=== PATIENT | male | born 1965 | race Caucasian/White ===

== ENCOUNTER 2017-07-30 09:45 | Inpatient (IN) | payer OTHER ==
[2017-07-30 10:38] VITALS: BMI 33.6
--- NOTE | 2017-07-30 14:17 | HP ---
COWS - Scale Resting Pulse: 1= [place] 81-100 Sweatin=Flushed/Facial Moisture Restless Observation: 1= Difficult to Sit Still Pupil Size: 1= Pupils >than Normal Bone or Joint Aches: 2= Severe Diffuse Aches Runny Nose/ Eye Tearin= Runny Nose/Eyes GI Upset > 30mins: 0= None Tremor Observation: 2= Slight Tremor Visible Yawning Observation: 1= 1-2x During Session Anxiety or Irritability: 2=Irritable/Anxious Goose Flesh Skin: 0=Smooth Skin COWS Score: 14 Admission ROS S - HPI Chief Complaint: "I want to stop the progression of using heroin, I just started again 2 months ago" Allergies/Adverse Reactions: Allergies Allergy/AdvReac Type Severity Reaction Status Date / Time penicillin G Allergy Severe Hives Verified 07/30/17 12:09 History of Present Illness: 52 year old male with an on and off heroin use for 6 years presents here for detox from heroin. Pt with about 6-7 of being clean, but started to use 2 months ago due to pain from R knee surgery. States he smokes about 1/2 pack (ten cigarets) a day but does not drink alcohol Exam Limitations: No Limitations - Ebola screening Have you traveled outside of the country in the last 21 days: No Have you had contact with anyone from an Ebola affected area: No Have you been sick,other than usual withdrawal symptoms: No Do you have a fever: No - Review of Systems Constitutional: Chills, Unintentional Wgt. Loss EENT: reports: Nose Congestion Respiratory: reports: No Symptoms reported Cardiac: reports: No Symptoms Reported GI: reports: No Symptoms Reported : reports: No Symptoms Reported Musculoskeletal: reports: Back Pain, Joint Pain, Muscle Pain Integumentary: reports: Flushing Neuro: reports: No Symptoms reported Endocrine: reports: No Symptoms Reported Hematology: reports: No Symptoms Reported Psychiatric: reports: Orientated x3, Agitated, Anxious Patient History - Patient Medical History Hx Anemia: No Hx Asthma: No Hx Chronic Obstructive Pulmonary Disease (COPD): No Hx Cancer: No Hx Cardiac Disorders: No Hx Congestive Heart Failure: No Hx Hypertension: No Hx Hypercholesterolemia: No Hx Pacemaker: No HX Cerebrovascular Accident: No Hx Seizures: No Hx Dementia: No Hx Diabetes: No Hx Gastrointestinal Disorders: Yes Hx Liver Disease: No Hx Genitourinary Disorders: No Hx Sexually Transmitted Disorders: No Hx Renal Disease (ESRD): No Hx Thyroid Disease: No Hx Human Immunodeficiency Virus (HIV): No (LASR 08/31) Hx Hepatitis C: Yes ( 10 years ago - treated) Hx Depression: Yes Hx Suicide Attempt: No Hx Bipolar Disorder: Yes (seroquel) Hx Schizophrenia: No - Patient Surgical History Past Surgical History: Yes Hx Neurologic Surgery: No Hx Cataract Extraction: No Hx Cardiac Surgery: No Hx Lung Surgery: No Hx Breast Surgery: No Hx Breast Biopsy: No Hx Abdominal Surgery: Yes (LT. INGUINAL HERNIA REPAIR) Hx Appendectomy: No Hx Cholecystectomy: No Hx Genitourinary Surgery: Yes (TORSION OF TESTICLES) Hx Section: No Hx Orthopedic Surgery: No Other Surgical History: tonsillectomy at 12 years old.OSTEOMYELITIS RT. CLAVICLE BONE SHAVING Anesthesia Reaction: No - PPD History Previous Implant?: Yes Date: 10/21/15 Results: 0 mm PPD to be Administered?: Yes - Smoking Cessation Smoking history: Current every day smoker Have you smoked in the past 12 months: Yes Aproximately how many cigarettes per day: 10 Hx Chewing Tobacco Use: No Initiated information on smoking cessation: Yes - Substances Abused Heroin Route: Injection Frequency: Daily Amount used: 5-8 bags Age of first use: 40 Date of Last Use: 07/29/17 Family Disease History - Family Disease History Family Disease History: CA: Mother (UTERUS), Other: Brother (DRUG) Admission Physical Exam BHS - Vital Signs Vital Signs: Vital Signs - 24 hr 07/30/17 10:36 Temperature 97.7 F Pulse Rate 97 H Respiratory 18 Rate Blood Pressure 136/93 - Physical General Appearance: Yes: Appropriately Dressed, Mild Distress HEENTM: Yes: Within Normal Limits Respiratory: Yes: Chest Non-Tender, Lungs Clear, Normal Breath Sounds, No Respiratory Distress, No Accessory Muscle Use Neck: Yes: No masses,lesions,Nodules Breast: Yes: Breast Exam Deferred Cardiology: Yes: Regular Rhythm, Regular Rate, S1, S2 Abdominal: Yes: Normal Bowel Sounds, Non Tender, Soft Genitourinary: Yes: Within Normal Limits Back: Yes: Within Normal Limits Musculoskeletal: Yes: full range of Motion, Gait Steady Neurological: Yes: Alert Integumentary: Yes: Dry, Warm, Track Mitchell Lymphatic: Yes: Within Normal Limits - Diagnostic (1) Opioid dependence with withdrawal Current Visit: No Status: Acute (2) Nicotine dependence Current Visit: No Status: Acute Qualifiers: Nicotine product type: cigarettes Substance use status: uncomplicated Qualified Code(s): F17.210 - Nicotine dependence, cigarettes, uncomplicated (3) Cocaine dependence Current Visit: No Status: Acute Qualifiers: Substance use status: with cocaine-induced anxiety disorder Qualified Code( s): 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 (4) GERD (gastroesophageal reflux disease) Current Visit: No Status: Chronic Qualifiers: Esophagitis presence: without esophagitis Qualified Code(s): K21.9 - Gastro -esophageal reflux disease without esophagitis Cleared for Admission S - Detox or Rehab S Level of Care: Medically Managed Detox Regimen/Protocol: Methadone [facility] Breath Alcohol Content Breath Alcohol Content: 0 Urine Drug Screen - Results Drug Screen Negative: No Urine Drug Screen Results: CORINE-Cocaine, OPI-Opiates, OXY-Oxycodone
[2017-07-30] MEDS ORDERED: IBUPROFEN 400 MG TABLET (FP) PO PRN (14:45)
[2017-07-30] MEDS ORDERED: guaiFENesin/D-METHORPHAN HB 10 ML UNIT-DOSE CUPS PO PRN (14:45)
[2017-07-30] MEDS ORDERED: LOPERAMIDE HCL 2 MG CAPSULE PO PRN (14:45)
[2017-07-30] MEDS ORDERED: MAGNESIUM CITRATE 300 ML BOTTLE PO PRN (14:45)
[2017-07-30] MEDS ORDERED: MAGNESIUM HYDROX 2400MG/30ML ORAL SUSPENSION 30 ML CUP PO PRN (14:45)
[2017-07-30] MEDS ORDERED: ACETAMINOPHEN 325 MG TABLET (FP) PO PRN (14:45)
[2017-07-30] MEDS ORDERED: P-EPHED 60MG/TRIPROLIDI 2.5MG TABLET PO PRN (14:45)
[2017-07-30] MEDS ORDERED: MENTHOL/PHENOL 1 EACH UD MM PRN (14:45)
[2017-07-30] MEDS ORDERED: MAG HYDROX/AL HYDROX/SIMETH 30 ML UNIT-DOSE CUP PO PRN (14:45)
[2017-07-30] MEDS ORDERED: METHADONE HCL 10 MG TABLET (FOR DETOX USE ONLY) PO ONE ×2 (15:05→23:00)
[2017-07-30] MEDS: diazePAM 5 MG TABLET PO PRN ×2 (17:05→22:06)
--- NOTE | 2017-07-30 17:24 | PN ---
BHS Progress Note Note: RECEIVED NURSE CALLED THAT THE PATIENT NEEDS PPD
[2017-07-30] MEDS: THIAMINE HCL 100 MG TABLET (FP) PO SCH (22:05)
[2017-07-31] MEDS: diazePAM 5 MG TABLET PO PRN ×4 (07:40→21:14)
[2017-07-31] MEDS ORDERED: METHADONE HCL 10 MG TABLET (FOR DETOX USE ONLY) PO ONE (10:00)
--- NOTE | 2017-07-31 10:03 | CONSULT ---
[facility] Psychiatric Consult - Data Date of interview: 07/31/17 Admission source: [facility] Substance Abuse History: Following information confirmed with Mr. Osei: - Smoking Cessation. Smoking history: Current every day smoker. Have you smoked in the past 12 months: Yes. Aproximately how many cigarettes per day: 10. Hx Chewing Tobacco Use: No. Initiated information on smoking cessation: Yes. - Substances Abused. Heroin. Route: Injection. Frequency: Daily. Amount used: 5-8 bags. Age of first use: 40. Date of Last Use: 07/29/17 Medical History: Hep C Psychiatric History: Pt irritable and withdrawn this morning. Pt. denies h/o psychiatric hospitalizations, suicide attempts, and OPC. States he is prescribed seroquel 200mg daily but not sure if it's a psychiatrist or medical doctor who prescribes it to him. Reports a diagnosis of bipolar disorder and MDD. As per pharmacy claims patient received a prescription of seroquel 200mg qhs on 11/23/16 and another prescription of seroquel of 150mg qhs on 11/24/16. Physical/Sexual Abuse/Trauma History: Denies. Additional Comment: Urine Drug Screen Results: CORINE-Cocaine, OPI-Opiates, OXY- Oxycodone Mental Status Exam - Mental Status Exam Alert and Oriented to: Time, Place, Person Cognitive Function: Fair, Good Patient Appearance: Unkempt Mood: Withdrawn, Irritable Affect: Mood Congruent Patient Behavior: Agitated Speech Pattern: Delayed Voice Loudness: Normal Thought Process: Goal Oriented Thought Disorder: Not Present Hallucinations: Denies Insight/Judgement: Poor Sleep: Poorly Appetite: Fair Muscle strength/Tone: Normal Gait/Station: Normal Psychiatric Findings - Problem List ([place] 1, 2,3) (1) Heroin dependence Current Visit: Yes Status: Acute (2) MDD (major depressive disorder) Current Visit: Yes Status: Chronic Comment: Self reports. (3) Bipolar disorder Current Visit: Yes Status: Chronic Comment: Self reports. (4) Nicotine dependence Current Visit: Yes Status: Chronic Qualifiers: Nicotine product type: cigarettes Substance use status: uncomplicated Qualified Code(s): F17.210 - Nicotine dependence, cigarettes, uncomplicated - Initial Treatment Plan Initial Treatment Plan: Psychoeducation provided. Detoxification in progress. Celexa 10mg po daily + Seroquel 100mg qhs ordered. Benefits and side effects discussed. Verbal consent given. Will continue to monitor.
[2017-07-31 10:06] LABS: ALBUMIN 3.5 g/dl (3.4-5.0); ALK PHOS 77 U/L (45-117); ANION GAP 6 (8-16); BILIRUBIN,TOTAL 0.6 mg/dL (0.2-1.0); BLOOD UREA NITROGEN 17 mg/dL (7-18); CALCIUM 8.4 mg/dL (8.5-10.1); CHLORIDE 107 mmol/L (98-107); CO2 29 mmol/L (21-32); CREATININE 1.4 mg/dL (0.7-1.3); GLUCOSE,RANDOM 94 mg/dL (74-106); POTASSIUM 4.2 mmol/L (3.5-5.1); SGOT/AST 9 U/L (15-37); SGPT/ALT 21 U/L (12-78); SODIUM 142 mmol/L (136-145); TOT PROT 6.8 g/dl (6.4-8.2)
[2017-07-31] MEDS: PRENATAL VITAMINS W/ FOLIC ACID TABLET (FP) PO SCH (10:07)
[2017-07-31 10:09] LABS: HEMATOCRIT 49.2 % (35.4-49); HEMOGLOBIN 16.2 GM/dL (11.7-16.9); MEAN CELL VOLUME 87.8 fl (80-96); MEAN PLT VOLUME 8.4 fl (7.5-11.1); PLATELET COUNT 229 K/MM3 (134-434); RBC 5.61 M/mm3 (4.00-5.60); RDW 13.8 % (11.9-15.9); WHITE BLOOD COUNT 8.1 K/mm3 (4.0-10.0)
--- NOTE | 2017-07-31 10:16 | PN ---
BHS COWS - Scale Resting Pulse: 1= [place] 81-100 Sweatin=Flushed/Facial Moisture Restless Observation: 1= Difficult to Sit Still Pupil Size: 0= Normal to Room Light Bone or Joint Aches: 2= Severe Diffuse Aches Runny Nose/ Eye Tearin= Nasal Congestion GI Upset > 30mins: 2= Nausea/Diarrhea Tremor Observation of Outstretched Hands: 2= Slight Tremor Visible Yawning Observation: 2= >3x During Session Anxiety or Irritability: 2=Irritable/Anxious Goose Flesh Skin: 0=Smooth Skin COWS Score: 15 BHS Progress Note (SOAP) Subjective: nausea sweats shakes interrupted sleep body aches irritable Objective: 07/31/17 10:14 Vital Signs Temperature 97.9 F 07/31/17 06:38 Pulse Rate 58 L 07/31/17 06:38 Respiratory Rate 20 07/31/17 06:38 Blood Pressure 122/69 07/31/17 06:38 O2 Sat by Pulse Oximetry (%) Laboratory Tests 07/31/17 07:00 Sodium 142 Potassium 4.2 Chloride 107 Carbon Dioxide 29 Anion Gap 6 L BUN 17 Creatinine 1.4 H Creat Clearance w eGFR 53.64 Random Glucose 94 D Calcium 8.4 L Total Bilirubin 0.6 D AST 9 L D ALT 21 D Alkaline Phosphatase 77 Total Protein 6.8 Albumin 3.5 rest of labs pending aaox3 ambulating no acute distress Assessment: 07/31/17 10:15 withdrawal sx Plan: continue detox increase fluids pending labs
--- NOTE | 2017-07-31 10:56 | EKG ---
Test Reason : Blood Pressure : / mmHG Vent. Rate : 060 BPM Atrial Rate : 060 BPM P-R Int : 168 ms QRS Dur : 094 ms QT Int : 398 ms P-R-T Axes : 060 070 038 degrees QTc Int : 398 ms NORMAL SINUS RHYTHM NORMAL ECG NO PREVIOUS ECGS AVAILABLE Confirmed by MD David, Riccardo ([id number]) on 07/31/2017 10:55:59 AM Referred By: Jayesh Conner Confirmed By:Riccardo Hernandez MD
[2017-07-31 13:50] LABS: URINE APPEARANCE CLEAR; URINE BILIRUBIN NEGATIVE (NEGATIVE); URINE BLOOD NEGATIVE (NEGATIVE); URINE COLOR YELLOW; URINE GLUCOSE (UA) NEGATIVE (NEGATIVE); URINE KETONE NEGATIVE (NEGATIVE); URINE LEUK ESTERASE NEGATIVE (NEGATIVE); URINE NITRITE NEGATIVE (NEGATIVE); URINE PROTEIN NEGATIVE (NEGATIVE); URINE UROBILINOGEN 4.0 E.U/dl mg/dL (0.2-1.0)
[2017-07-31] MEDS: THIAMINE HCL 100 MG TABLET (FP) PO SCH (22:30)
[2017-07-31] MEDS: QUEtiapine FUMARATE 100 MG TABLET (FP) PO SCH (22:30)
[2017-08-01] MEDS: diazePAM 5 MG TABLET PO PRN ×3 (08:23→22:23)
[2017-08-01] MEDS ORDERED: METHADONE HCL 5 MG TABLET (FOR DETOX USE ONLY) PO ONE (10:00)
[2017-08-01] MEDS: PRENATAL VITAMINS W/ FOLIC ACID TABLET (FP) PO SCH (10:19)
[2017-08-01] MEDS: CITALOPRAM HYDROBROMIDE 10 MG TABLET (FP) PO SCH (10:19)
[2017-08-01] MEDS: RANITIDINE HCL 150 MG TABLET (FP) PO SCH ×2 (11:25→22:23)
[2017-08-01] MEDS: NICOTINE 21 MG/24 HOURS TOPICAL PATCH TD SCH (13:26)
--- NOTE | 2017-08-01 14:10 | PN ---
BHS COWS - Scale Resting Pulse: 0= [place] 80 or Below Sweatin=Flushed/Facial Moisture Restless Observation: 1= Difficult to Sit Still Pupil Size: 0= Normal to Room Light Bone or Joint Aches: 2= Severe Diffuse Aches Runny Nose/ Eye Tearin= None GI Upset > 30mins: 2= Nausea/Diarrhea Tremor Observation of Outstretched Hands: 1= Tremor [place], Not Seen Yawning Observation: 1= 1-2x During Session Anxiety or Irritability: 1=Feels Anxious/Irritable Goose Flesh Skin: 3=Piloerection COWS Score: 13 BHS Progress Note (SOAP) Subjective: body aches, interrupted sleep, chills, sweats, nausea, tremor, interrupted sleep Objective: 08/01/17 14:08 Last Vital Signs Temp Pulse Resp BP Pulse Ox 96.4 F L 67 18 133/85 08/01/17 10:00 08/01/17 10:00 08/01/17 10:00 08/01/17 10:00 Laboratory Last Values WBC 8.1 K/mm3 (4.0-10.0) 07/31/17 07:00 RBC 5.61 M/mm3 (4.00-5.60) H 07/31/17 07:00 Hgb 16.2 GM/dL (11.7-16.9) 07/31/17 07:00 Hct 49.2 % (35.4-49) H 07/31/17 07:00 MCV 87.8 fl (80-96) 07/31/17 07:00 MCH 29.0 pg (25.7-33.7) 07/31/17 07:00 MCHC 33.0 g/dl (32.0-35.9) 07/31/17 07:00 RDW 13.8 % (11.9-15.9) 07/31/17 07:00 Plt Count 229 K/MM3 (134-434) D 07/31/17 07:00 MPV 8.4 fl (7.5-11.1) 07/31/17 07:00 Sodium 142 mmol/L (136-145) 07/31/17 07:00 Potassium 4.2 mmol/L (3.5-5.1) 07/31/17 07:00 Chloride 107 mmol/L (98-107) 07/31/17 07:00 Carbon Dioxide 29 mmol/L (21-32) 07/31/17 07:00 Anion Gap 6 (8-16) L 07/31/17 07:00 BUN 17 mg/dL (7-18) 07/31/17 07:00 Creatinine 1.4 mg/dL (0.7-1.3) H 07/31/17 07:00 Creat Clearance w eGFR 53.64 (>60) 07/31/17 07:00 Random Glucose 94 mg/dL (74-106) D 07/31/17 07:00 Calcium 8.4 mg/dL (8.5-10.1) L 07/31/17 07:00 Total Bilirubin 0.6 mg/dL (0.2-1.0) D 07/31/17 07:00 AST 9 U/L (15-37) L D 07/31/17 07:00 ALT 21 U/L (12-78) D 07/31/17 07:00 Alkaline Phosphatase 77 U/L (45-117) 07/31/17 07:00 Total Protein 6.8 g/dl (6.4-8.2) 07/31/17 07:00 Albumin 3.5 g/dl (3.4-5.0) 07/31/17 07:00 Urine Color Yellow 07/31/17 12:10 Urine Appearance Clear 07/31/17 12:10 Urine pH 7.0 (5.0-8.0) D 07/31/17 12:10 Ur Specific [place] 1.023 (1.001-1.035) 07/31/17 12:10 Urine Protein Negative (NEGATIVE) 07/31/17 12:10 Urine Glucose (UA) Negative (NEGATIVE) 07/31/17 12:10 Urine Ketones Negative (NEGATIVE) 07/31/17 12:10 Urine Blood Negative (NEGATIVE) 07/31/17 12:10 Urine Nitrite Negative (NEGATIVE) 07/31/17 12:10 Urine Bilirubin Negative (NEGATIVE) 07/31/17 12:10 Urine Urobilinogen 4.0 e.u/dl mg/dL (0.2-1.0) 07/31/17 12:10 Ur Leukocyte Esterase Negative (NEGATIVE) 07/31/17 12:10 RPR Titer Nonreactive (NONREACTIVE) 07/31/17 07:00 Labs noted Assessment: 08/01/17 14:08 AOx3 Ambulating No s/s of distress withdrawal symptoms Plan: Continue detox increase fluids
[2017-08-01] MEDS: QUEtiapine FUMARATE 100 MG TABLET (FP) PO SCH (22:23)
[2017-08-01] MEDS: THIAMINE HCL 100 MG TABLET (FP) PO SCH (22:23)
[2017-08-02] MEDS: diazePAM 5 MG TABLET PO PRN ×2 (08:47→13:17)
[2017-08-02] MEDS ORDERED: METHADONE HCL 5 MG TABLET (FOR DETOX USE ONLY) PO ONE (10:00)
[2017-08-02] MEDS: PRENATAL VITAMINS W/ FOLIC ACID TABLET (FP) PO SCH (10:10)
[2017-08-02] MEDS: CITALOPRAM HYDROBROMIDE 10 MG TABLET (FP) PO SCH (10:10)
[2017-08-02] MEDS: RANITIDINE HCL 150 MG TABLET (FP) PO SCH (10:10)
[2017-08-02] MEDS: NICOTINE 21 MG/24 HOURS TOPICAL PATCH TD SCH (10:11)
[2017-08-02] MEDS ORDERED: NICOTINE 21 MG/24 HOURS TOPICAL PATCH TD SCH (11:15)
--- NOTE | 2017-08-02 15:02 | PN ---
S Progress Note (SOAP) Subjective: Interrupted sleep, anxious, chills, body ache Objective: 08/02/17 14:59 Last Vital Signs Temp Pulse Resp BP Pulse Ox 96.8 F L 75 18 121/74 08/02/17 14:27 08/02/17 14:27 08/02/17 14:27 08/02/17 14:27 Laboratory Last Values WBC 8.1 K/mm3 (4.0-10.0) 07/31/17 07:00 RBC 5.61 M/mm3 (4.00-5.60) H 07/31/17 07:00 Hgb 16.2 GM/dL (11.7-16.9) 07/31/17 07:00 Hct 49.2 % (35.4-49) H 07/31/17 07:00 MCV 87.8 fl (80-96) 07/31/17 07:00 MCH 29.0 pg (25.7-33.7) 07/31/17 07:00 MCHC 33.0 g/dl (32.0-35.9) 07/31/17 07:00 RDW 13.8 % (11.9-15.9) 07/31/17 07:00 Plt Count 229 K/MM3 (134-434) D 07/31/17 07:00 MPV 8.4 fl (7.5-11.1) 07/31/17 07:00 Sodium 142 mmol/L (136-145) 07/31/17 07:00 Potassium 4.2 mmol/L (3.5-5.1) 07/31/17 07:00 Chloride 107 mmol/L (98-107) 07/31/17 07:00 Carbon Dioxide 29 mmol/L (21-32) 07/31/17 07:00 Anion Gap 6 (8-16) L 07/31/17 07:00 BUN 17 mg/dL (7-18) 07/31/17 07:00 Creatinine 1.4 mg/dL (0.7-1.3) H 07/31/17 07:00 Creat Clearance w eGFR 53.64 (>60) 07/31/17 07:00 Random Glucose 94 mg/dL (74-106) D 07/31/17 07:00 Calcium 8.4 mg/dL (8.5-10.1) L 07/31/17 07:00 Total Bilirubin 0.6 mg/dL (0.2-1.0) D 07/31/17 07:00 AST 9 U/L (15-37) L D 07/31/17 07:00 ALT 21 U/L (12-78) D 07/31/17 07:00 Alkaline Phosphatase 77 U/L (45-117) 07/31/17 07:00 Total Protein 6.8 g/dl (6.4-8.2) 07/31/17 07:00 Albumin 3.5 g/dl (3.4-5.0) 07/31/17 07:00 Urine Color Yellow 07/31/17 12:10 Urine Appearance Clear 07/31/17 12:10 Urine pH 7.0 (5.0-8.0) D 07/31/17 12:10 Ur Specific [place] 1.023 (1.001-1.035) 07/31/17 12:10 Urine Protein Negative (NEGATIVE) 07/31/17 12:10 Urine Glucose (UA) Negative (NEGATIVE) 07/31/17 12:10 Urine Ketones Negative (NEGATIVE) 07/31/17 12:10 Urine Blood Negative (NEGATIVE) 07/31/17 12:10 Urine Nitrite Negative (NEGATIVE) 07/31/17 12:10 Urine Bilirubin Negative (NEGATIVE) 07/31/17 12:10 Urine Urobilinogen 4.0 e.u/dl mg/dL (0.2-1.0) 07/31/17 12:10 Ur Leukocyte Esterase Negative (NEGATIVE) 07/31/17 12:10 RPR Titer Nonreactive (NONREACTIVE) 07/31/17 07:00 labs noted Assessment: 08/02/17 15:00 AO x 3 ambulating no distress withdrawal symptoms Plan: Continue detox
[2017-08-02 23:38] VITALS: BP 147/70; PULSE 69; TEMP 97.5
[2017-08-03] MEDS ORDERED: METHADONE HCL 10 MG TABLET (FOR DETOX USE ONLY) PO ONE (10:00)
[2017-08-04] MEDS ORDERED: METHADONE HCL 5 MG TABLET (FOR DETOX USE ONLY) PO ONE (06:00)
== END 2017-08-02 22:00 | disposition left against medical advice (07) | DRG 770 ==
LOC: YASAS 09:45 → Y6N 14:50
PROVIDERS: ADMIT Internal Medicine; ATTEND Internal Medicine
PROC: HZ2ZZZZ Detoxification Services for Substance Abuse Treatment (ICD-10-PCS; principal; 2017-07-30)
DX: F11.23 Opioid dependence with withdrawal (principal); F10.230 Alcohol dependence with withdrawal, uncomplicated; F14.20 Cocaine dependence, uncomplicated; F17.210 Nicotine dependence, cigarettes, uncomplicated; F33.9 Major depressive disorder, recurrent, unspecified; F31.9 Bipolar disorder, unspecified; K21.9 Gastro-esophageal reflux disease without esophagitis; B18.2 Chronic viral hepatitis C; E66.09 Other obesity due to excess calories; Z68.33 Body mass index [BMI] 33.0-33.9, adult
CPT/HCPCS: 36415; 80053; 81003; 85027; 86593; 93005; 93010

== ENCOUNTER 2017-10-08 10:04 | Inpatient (IN) | payer OTHER ==
[2017-10-08 11:48] VITALS: BMI 32.8
--- NOTE | 2017-10-08 13:46 | HP ---
COWS - Scale Resting Pulse: 0= [place] 80 or Below Sweatin=Flushed/Facial Moisture Restless Observation: 3= Extraneous Movement Pupil Size: 2= Moderately Dilated Bone or Joint Aches: 2= Severe Diffuse Aches Runny Nose/ Eye Tearin= Runny Nose/Eyes GI Upset > 30mins: 3= Vomiting/Diarrhea Tremor Observation: 2= Slight Tremor Visible Yawning Observation: 2= >3x During Session Anxiety or Irritability: 2=Irritable/Anxious Goose Flesh Skin: 0=Smooth Skin COWS Score: 20 Admission ROS S - HPI Chief Complaint: I NEED HELP TO STOP USING HEROIN AND COCAINE Allergies/Adverse Reactions: Allergies Allergy/AdvReac Type Severity Reaction Status Date / Time penicillin G Allergy Severe Hives Verified 10/08/17 12:16 History of Present Illness: THIS 52YEARS OLD MALE WITH HEROIN AND COCAINE DEPENDENCE,SEEKING DETOCX WITHDRAWAL SYMPTOM,LAST DETOX 08/04/17 TO 09/09/17 HEPATITIS C TREATMENT 2017 NICOTINE DEPENDENCE ANXIETY,DEPRESSION,INSOMNIA WEIGHT LOSS LONGEST PERIOD OF SOBRIETY 7 YEARS Exam Limitations: No Limitations - Ebola screening Have you traveled outside of the country in the last 21 days: No Have you had contact with anyone from an Ebola affected area: No Have you been sick,other than usual withdrawal symptoms: No Do you have a fever: No - Review of Systems Constitutional: Chills, Diaphoresis, Loss of Appetite, Malaise, Night Sweats, Changes in sleep, Weakness, Unintentional Wgt. Loss EENT: reports: Tearing, Nose Congestion Respiratory: reports: No Symptoms reported Cardiac: reports: No Symptoms Reported GI: reports: Diarrhea, Nausea, Vomiting, Abdominal cramping : reports: No Symptoms Reported Musculoskeletal: reports: Back Pain, Joint Pain, Muscle Pain, Joint Stiffness Integumentary: reports: Dryness (DEHYDRATION) Neuro: reports: Headache Endocrine: reports: No Symptoms Reported Hematology: reports: No Symptoms Reported Psychiatric: reports: No Sypmtoms Reported, Judgement Intact, Mood/Affect Appropiate, Orientated x3 (INSOMNIA), Anxious, Depressed Patient History - Patient Medical History Hx Anemia: No Hx Asthma: No Hx Chronic Obstructive Pulmonary Disease (COPD): No Hx Cancer: No Hx Cardiac Disorders: No Hx Congestive Heart Failure: No Hx Hypertension: No Hx Hypercholesterolemia: No Hx Pacemaker: No HX Cerebrovascular Accident: No Hx Seizures: No Hx Dementia: No Hx Diabetes: No Hx Gastrointestinal Disorders: Yes (acid reflux) Hx Liver Disease: No Hx Genitourinary Disorders: No Hx Sexually Transmitted Disorders: No Hx Renal Disease (ESRD): No Hx Thyroid Disease: No Hx Human Immunodeficiency Virus (HIV): No (LAST 09/02 NEGATIVE) Hx Hepatitis C: Yes (Completed Treatment: 03/2017.) Hx Depression: Yes (ANXIETY) Hx Suicide Attempt: No Hx Bipolar Disorder: No Hx Schizophrenia: No Other Medical History: NO SUICIDAL,NO HOMICIDAL,INSOMNIA - Patient Surgical History Past Surgical History: Yes Hx Neurologic Surgery: No Hx Cataract Extraction: No Hx Cardiac Surgery: No Hx Lung Surgery: No Hx Breast Surgery: No Hx Breast Biopsy: No Hx Abdominal Surgery: Yes (LT. INGUINAL HERNIA REPAIR (DURING CHILDHOOD).) Hx Appendectomy: No Hx Cholecystectomy: No Hx Genitourinary Surgery: Yes (TORSION OF TESTICLES (DURING 20'S).) Hx Section: No Hx Orthopedic Surgery: No Other Surgical History: tonsillectomy at 12 years old.OSTEOMYELITIS RT. CLAVICLE BONE SHAVING Anesthesia Reaction: No - PPD History Previous Implant?: Yes Documented Results: Negative w/proof Implanted On Prior [facility] Admission?: Yes Date: 09/06/17 Results: 0 mm PPD to be Administered?: No - Smoking Cessation Smoking history: Current every day smoker Have you smoked in the past 12 months: Yes Aproximately how many cigarettes per day: 10 Cigars Per Day: 0 Hx Chewing Tobacco Use: No Initiated information on smoking cessation: Yes 'Breaking Loose' booklet given: 10/08/17 - Substance & Tx. History Hx Alcohol Use: No Hx Substance Use: Yes Substance Use Type: Cocaine, Heroin Hx Substance Use Treatment: Yes ([facility] 09/04/17 TO 09/09/17) - Substances Abused Heroin Route: Injection Frequency: Daily Amount used: 5 bags Age of first use: 40 Date of Last Use: 10/07/17 Cocaine Route: Injection Frequency: 1-3 times last 30 days Amount used: $20 Age of first use: 20 Date of Last Use: 10/06/17 Family Disease History - Family Disease History Family Disease History: Heart Disease: Mother (UTERUS; HTN), CA: Mother, Other: Brother (DRUG USE.) Admission Physical Exam BHS - Vital Signs Vital Signs: Vital Signs - 24 hr 10/08/17 11:44 Temperature 97.5 F L Pulse Rate 61 Respiratory 20 Rate Blood Pressure 126/70 - Physical General Appearance: Yes: Moderate Distress, Tremorous, Irritable, Sweating, Anxious HEENTM: Yes: Normal ENT Inspection, RENEA, Pharynx Normal Respiratory: Yes: Within Normal Limits, Lungs Clear, Normal Breath Sounds Neck: Yes: Within Normal Limits, Supple, Trachea in good position Breast: Yes: Within Normal Limits Cardiology: Yes: Within Normal Limits, Regular Rhythm, Regular Rate, S1, S2 Abdominal: Yes: Within Normal Limits, Normal Bowel Sounds, Non Tender, Flat, Soft Genitourinary: Yes: Within Normal Limits Back: Yes: Normal Inspection, Muscle Spasm Musculoskeletal: Yes: Within Normal Limits, full range of Motion, Back pain, Muscle Pain Extremities: Yes: Tremors Neurological: Yes: copywriter II-XII NML intact, Fully Oriented, Alert, Motor Strength 5/5 Integumentary: Yes: Dry, Track Mitchell Lymphatic: Yes: Within Normal Limits - Diagnostic (1) Opioid dependence with withdrawal Current Visit: No Status: Acute (2) Cocaine dependence, uncomplicated Current Visit: No Status: Deleted (3) Bipolar disorder Current Visit: No Status: Deleted Comment: Self reports. (4) GERD (gastroesophageal reflux disease) Current Visit: No Status: Chronic Qualifiers: Esophagitis presence: without esophagitis Qualified Code(s): K21.9 - Gastro -esophageal reflux disease without esophagitis (5) Nicotine dependence Current Visit: No Status: Chronic Qualifiers: Nicotine product type: cigarettes Substance use status: uncomplicated Qualified Code(s): F17.210 - Nicotine dependence, cigarettes, uncomplicated (6) Hepatitis C Current Visit: No Status: Resolved Qualifiers: Viral hepatitis chronicity: chronic Hepatic coma status: without hepatic coma Qualified Code(s): B18.2 - Chronic viral hepatitis C Comment: Completed Treatment (2016). [facility] - [facility] Level of Care: Medically Managed Detox Regimen/Protocol: [facility]one [facility] Breath Alcohol Content Breath Alcohol Content: 0 Urine Drug Screen - Results Drug Screen Negative: No Urine Drug Screen Results: CORINE-Cocaine, OPI-Opiates, MET-Methamphetamine, BZO- Benzodiazepines
[2017-10-08] MEDS ORDERED: MAGNESIUM CITRATE 300 ML BOTTLE PO PRN (13:53)
[2017-10-08] MEDS ORDERED: IBUPROFEN 400 MG TABLET (FP) PO PRN (13:53)
[2017-10-08] MEDS ORDERED: guaiFENesin/D-METHORPHAN HB 10 ML UNIT-DOSE CUPS PO PRN (13:53)
[2017-10-08] MEDS ORDERED: LOPERAMIDE HCL 2 MG CAPSULE PO PRN (13:53)
[2017-10-08] MEDS ORDERED: ACETAMINOPHEN 325 MG TABLET (FP) PO PRN (13:53)
[2017-10-08] MEDS ORDERED: MENTHOL/PHENOL 1 EACH UD MM PRN (13:53)
[2017-10-08] MEDS ORDERED: MAGNESIUM HYDROX 2400MG/30ML ORAL SUSPENSION 30 ML CUP PO PRN (13:53)
[2017-10-08] MEDS ORDERED: P-EPHED 60MG/TRIPROLIDI 2.5MG TABLET PO PRN (13:53)
[2017-10-08] MEDS ORDERED: hydrOXYzine PAMOATE 25 MG CAPSULE (FP) PO PRN (13:53)
[2017-10-08] MEDS ORDERED: MAG HYDROX/AL HYDROX/SIMETH 30 ML UNIT-DOSE CUP PO PRN (13:53)
[2017-10-08] MEDS ORDERED: CYCLOBENZAPRINE HCL 10 MG TABLET (FP) PO PRN (13:58)
[2017-10-08] MEDS ORDERED: METHADONE HCL 10 MG TABLET (FOR DETOX USE ONLY) PO ONE ×2 (14:15→23:00)
--- NOTE | 2017-10-08 15:12 | CONSULT ---
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 Looking for detoxifications from above street drugs. Last detox on 08/04/17 Substance Abuse History: Urine Drug Screen Results: CORINE-Cocaine, OPI-Opiates, MET-Methamphetamine, BZO-Benzodiazepines. - Smoking Cessation. Smoking history : Current every day smoker. Have you smoked in the past 12 months: Yes. Aproximately how many cigarettes per day: 10. Cigars Per Day: 0. Hx Chewing Tobacco Use: No. Initiated information on smoking cessation: Yes. 'Breaking Loose' booklet given: 10/08/17. - Substance & Tx. History. Hx Alcohol Use: No. Hx Substance Use: Yes. Substance Use Type: Cocaine, Heroin. Hx Substance Use Treatment: Yes ([facility] 09/04/17 TO 09/09/17). - Substances Abused. Heroin. Route: Injection. Frequency: Daily. Amount used: 5 bags. Age of first use: 40. Date of Last Use: 10/07/17. Cocaine. Route: Injection. Frequency: 1-3 times last 30 days. Amount used: $20. Age of first use: 20. Date of Last Use: 10/06/17 Medical History: GERD, HepC+, Psychiatric History: Patient reports histopry of depression and anxiety, reports taking pruior to admission: Seroquel 200mg po qhs. Celexa 10mg poqd. As per computer there is a history of MDD and Bipolar Disorder. Denies past suicidal, homicidal history Physical/Sexual Abuse/Trauma History: Denies Additional Comment: Urine Drug Screen Results: CORINE-Cocaine, OPI-Opiates, MET- Methamphetamine, BZO-Benzodiazepines Mental Status Exam - Mental Status Exam Alert and Oriented to: Person Cognitive Function: Fair Patient Appearance: Well Groomed Mood: Nervous Affect: Mood Congruent Patient Behavior: Cooperative Speech Pattern: Appropriate Voice Loudness: Normal Thought Process: Goal Oriented Thought Disorder: Being Controlled Hallucinations: Denies Homicidal Ideation: Denies Insight/Judgement: Fair Sleep: Difficulty falling asleep Appetite: Fair Muscle strength/Tone: Normal Gait/Station: Normal Additional Comments: Seroquel 200mg po qhs. Celexa 10mg poqd Psychiatric Findings - Problem List ([place] 1, 2,3) (1) Alcohol dependence with uncomplicated withdrawal Current Visit: No Status: Acute (2) Cocaine dependence Current Visit: No Status: Acute Qualifiers: Substance use status: with cocaine-induced anxiety disorder Qualified Code( s): 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 (3) Cocaine dependence, uncomplicated Current Visit: No Status: Acute (4) EtOH dependence Current Visit: No Status: Acute (5) Heroin dependence Current Visit: No Status: Acute (6) MDD (major depressive disorder), recurrent episode, moderate Current Visit: No Status: Acute (7) Methadone maintenance therapy patient Current Visit: No Status: Acute (8) Opioid dependence with withdrawal Current Visit: No Status: Acute (9) Substance induced mood disorder Current Visit: No Status: Acute (10) Bipolar disorder Current Visit: No Status: Chronic Comment: Self reports. (11) GERD (gastroesophageal reflux disease) Current Visit: No Status: Chronic Qualifiers: Esophagitis presence: without esophagitis Qualified Code(s): K21.9 - Gastro -esophageal reflux disease without esophagitis (12) MDD (major depressive disorder) Current Visit: No Status: Suspected Comment: Self reports. (13) Nicotine dependence Current Visit: No Status: Chronic Qualifiers: Nicotine product type: cigarettes Substance use status: uncomplicated Qualified Code(s): F17.210 - Nicotine dependence, cigarettes, uncomplicated (14) Obesity Current Visit: No Status: Chronic Qualifiers: Obesity type: due to excess calories Qualified Code(s): E66.09 - Other obesity due to excess calories (15) Bipolar affective, depress, mod Current Visit: No Status: Suspected (16) Hepatitis C Current Visit: No Status: Resolved Qualifiers: Viral hepatitis chronicity: chronic Hepatic coma status: without hepatic coma Qualified Code(s): B18.2 - Chronic viral hepatitis C Comment: Completed Treatment (2016). - Initial Treatment Plan Initial Treatment Plan: Seroquel 200mg po qhs. Celexa 10mg poqd
[2017-10-08] MEDS: diazePAM 5 MG TABLET PO PRN (15:26)
[2017-10-08] MEDS: NICOTINE 21 MG/24 HOURS TOPICAL PATCH TD SCH (15:27)
[2017-10-08 16:46] LABS: URINE APPEARANCE CLEAR; URINE BILIRUBIN NEGATIVE (<2.0 mg/dL); URINE BLOOD NEGATIVE (NEGATIVE); URINE COLOR YELLOW; URINE GLUCOSE (UA) NEGATIVE (NEGATIVE); URINE KETONE NEGATIVE (NEGATIVE); URINE LEUK ESTERASE NEGATIVE (NEGATIVE); URINE NITRITE NEGATIVE (NEGATIVE); URINE PROTEIN NEGATIVE (NEGATIVE)
[2017-10-08] MEDS: cloNIDine HCL 0.1 MG TABLET PO SCH (22:26)
[2017-10-08] MEDS: RANITIDINE HCL 150 MG TABLET (FP) PO SCH (22:26)
[2017-10-08] MEDS: THIAMINE HCL 100 MG TABLET (FP) PO SCH (22:26)
[2017-10-08] MEDS: QUEtiapine FUMARATE 200 MG TABLET PO SCH (22:26)
[2017-10-08] MEDS: MELATONIN 5 MG TABLETS PO SCH (22:27)
[2017-10-09] MEDS: diazePAM 5 MG TABLET PO PRN ×3 (08:03→22:36)
--- NOTE | 2017-10-09 09:07 | PN ---
BHS COWS - Scale Resting Pulse: 0= [place] 80 or Below Sweatin= Chills/Flushing Restless Observation: 3= Extraneous Movement Pupil Size: 1= Pupils >than Normal Bone or Joint Aches: 2= Severe Diffuse Aches Runny Nose/ Eye Tearin= Runny Nose/Eyes GI Upset > 30mins: 2= Nausea/Diarrhea Tremor Observation of Outstretched Hands: 2= Slight Tremor Visible Yawning Observation: 2= >3x During Session Anxiety or Irritability: 2=Irritable/Anxious Goose Flesh Skin: 0=Smooth Skin COWS Score: 17 BHS Progress Note (SOAP) Subjective: joint and body ache sweat tremor restlessness irritable anxiety difficulty sleep through the night Objective: 10/09/17 09:07 Vital Signs Temperature 97.1 F L 10/09/17 06:24 Pulse Rate 59 L 10/09/17 06:24 Respiratory Rate 18 10/09/17 06:24 Blood Pressure 113/70 10/09/17 06:24 O2 Sat by Pulse Oximetry (%) Laboratory Last Values Urine Color Yellow 10/08/17 15:20 Urine Appearance Clear 10/08/17 15:20 Urine pH 5.0 (5.0-8.0) 10/08/17 15:20 Ur Specific [place] 1.031 (1.001-1.035) 10/08/17 15:20 Urine Protein Negative (NEGATIVE) 10/08/17 15:20 Urine Glucose (UA) Negative (NEGATIVE) 10/08/17 15:20 Urine Ketones Negative (NEGATIVE) 10/08/17 15:20 Urine Blood Negative (NEGATIVE) 10/08/17 15:20 Urine Nitrite Negative (NEGATIVE) 10/08/17 15:20 Urine Bilirubin Negative (<2.0 mg/dL) 10/08/17 15:20 Urine Urobilinogen 2.0 mg/dL (0.2-1.0) 10/08/17 15:20 Ur Leukocyte Esterase Negative (NEGATIVE) 10/08/17 15:20 lab noted Assessment: 10/09/17 09:07 continue detox Plan: continue detox
[2017-10-09] MEDS ORDERED: METHADONE HCL 10 MG TABLET (FOR DETOX USE ONLY) PO ONE (10:00)
[2017-10-09 10:03] LABS: HEMATOCRIT 46.8 % (35.4-49); HEMOGLOBIN 15.7 GM/dL (11.7-16.9); MCH 29.8 pg (25.7-33.7); MCHC 33.6 g/dl (32.0-35.9); MEAN CELL VOLUME 88.7 fl (80-96); MEAN PLT VOLUME 8.8 fl (7.5-11.1); PLATELET COUNT 186 K/MM3 (134-434); RBC 5.28 M/mm3 (4.00-5.60); RDW 14.4 % (11.9-15.9); WHITE BLOOD COUNT 7.8 K/mm3 (4.0-10.0)
[2017-10-09] MEDS: cloNIDine HCL 0.1 MG TABLET PO SCH ×2 (10:19→22:36)
[2017-10-09] MEDS: PRENATAL VITAMINS W/ FOLIC ACID TABLET (FP) PO SCH (10:19)
[2017-10-09] MEDS: NICOTINE 21 MG/24 HOURS TOPICAL PATCH TD SCH (10:19)
[2017-10-09] MEDS: CITALOPRAM HYDROBROMIDE 10 MG TABLET (FP) PO SCH (10:19)
[2017-10-09] MEDS: RANITIDINE HCL 150 MG TABLET (FP) PO SCH ×2 (10:19→22:36)
[2017-10-09 10:25] LABS: ALBUMIN 3.7 g/dl (3.4-5.0); ANION GAP 3 (8-16); BLOOD UREA NITROGEN 22 mg/dL (7-18); CALCIUM 8.8 mg/dL (8.5-10.1); CHLORIDE 108 mmol/L (98-107); CO2 28 mmol/L (21-32); CREATININE 1.4 mg/dL (0.7-1.3); GLUCOSE,RANDOM 81 mg/dL (74-106); POTASSIUM 4.8 mmol/L (3.5-5.1); SGOT/AST 9 U/L (15-37); SGPT/ALT 21 U/L (12-78); SODIUM 139 mmol/L (136-145)
[2017-10-09 10:27] LABS: ALK PHOS 88 U/L (45-117); BILIRUBIN,TOTAL 0.4 mg/dL (0.2-1.0)
--- NOTE | 2017-10-09 16:51 | EKG ---
Test Reason : Blood Pressure : / mmHG Vent. Rate : 050 BPM Atrial Rate : 050 BPM P-R Int : 172 ms QRS Dur : 086 ms QT Int : 416 ms P-R-T Axes : 061 078 040 degrees QTc Int : 379 ms SINUS BRADYCARDIA OTHERWISE NORMAL ECG WHEN COMPARED WITH ECG OF 04-SEP-2017 14:23, NO SIGNIFICANT CHANGE WAS FOUND Confirmed by MD Miller Edward ([id number]) on 10/09/2017 4:50:43 PM Referred By: Confirmed By:Guerrero Miller MD
[2017-10-09] MEDS: THIAMINE HCL 100 MG TABLET (FP) PO SCH (22:36)
[2017-10-09] MEDS: QUEtiapine FUMARATE 200 MG TABLET PO SCH (22:36)
[2017-10-09] MEDS: MELATONIN 5 MG TABLETS PO SCH (22:38)
[2017-10-10] MEDS: diazePAM 5 MG TABLET PO PRN ×3 (07:43→22:34)
[2017-10-10] MEDS: CITALOPRAM HYDROBROMIDE 10 MG TABLET (FP) PO SCH (10:58)
[2017-10-10] MEDS: PRENATAL VITAMINS W/ FOLIC ACID TABLET (FP) PO SCH (10:58)
[2017-10-10] MEDS: cloNIDine HCL 0.1 MG TABLET PO SCH ×2 (10:58→22:34)
[2017-10-10] MEDS: RANITIDINE HCL 150 MG TABLET (FP) PO SCH ×2 (10:58→22:34)
[2017-10-10] MEDS: METHADONE HCL 5 MG TABLET (FOR DETOX USE ONLY) PO ONE (10:59)
[2017-10-10] MEDS: NICOTINE 21 MG/24 HOURS TOPICAL PATCH TD SCH (10:59)
--- NOTE | 2017-10-10 11:07 | PN ---
S COWS - Scale Resting Pulse: 0= [place] 80 or Below Sweatin= Chills/Flushing Restless Observation: 1= Difficult to Sit Still Pupil Size: 0= Normal to Room Light Bone or Joint Aches: 1= Mild Discomfort Runny Nose/ Eye Tearin= Nasal Congestion GI Upset > 30mins: 2= Nausea/Diarrhea Tremor Observation of Outstretched Hands: 1= Tremor [place], Not Seen Yawning Observation: 1= 1-2x During Session Anxiety or Irritability: 2=Irritable/Anxious Goose Flesh Skin: 3=Piloerection COWS Score: 13 S Progress Note (SOAP) Subjective: nausea, swets, interrupted sleep, anxiety, trmeors Objective: 10/10/17 11:06 Vital Signs - 24 hr 10/09/17 10/09/17 10/09/17 14:36 17:22 22:25 Temperature 97.0 F L 98.2 F 97.2 F L Pulse Rate 58 L 51 L 49 L Respiratory 18 16 20 Rate Blood Pressure 116/73 101/58 122/72 10/10/17 10/10/17 10/10/17 00:30 03:30 06:42 Temperature 98.1 F Pulse Rate 50 L Respiratory 18 18 16 Rate Blood Pressure 122/76 10/10/17 10:00 Temperature 98.1 F Pulse Rate 54 L Respiratory 20 Rate Blood Pressure 125/85 Laboratory Tests 10/08/17 10/09/17 10/09/17 15:20 07:00 07:00 WBC 7.8 RBC 5.28 Hgb 15.7 Hct 46.8 MCV 88.7 MCH 29.8 MCHC 33.6 RDW 14.4 Plt Count 186 D MPV 8.8 Sodium 139 Potassium 4.8 Chloride 108 H Carbon Dioxide 28 Anion Gap 3 L BUN 22 H Creatinine 1.4 H Creat Clearance w eGFR 53.64 Random Glucose 81 D Calcium 8.8 Total Bilirubin 0.4 D AST 9 L D ALT 21 D Alkaline Phosphatase 88 Total Protein 7.0 Albumin 3.7 Urine Color Yellow Urine Appearance Clear Urine pH 5.0 Ur Specific [place] 1.031 Urine Protein Negative Urine Glucose (UA) Negative Urine Ketones Negative Urine Blood Negative Urine Nitrite Negative Urine Bilirubin Negative Urine Urobilinogen 2.0 Ur Leukocyte Esterase Negative RPR Titer 10/09/17 07:00 WBC RBC Hgb Hct MCV MCH MCHC RDW Plt Count MPV Sodium Potassium Chloride Carbon Dioxide Anion Gap BUN Creatinine Creat Clearance w eGFR Random Glucose Calcium Total Bilirubin AST ALT Alkaline Phosphatase Total Protein Albumin Urine Color Urine Appearance Urine pH Ur Specific [place] Urine Protein Urine Glucose (UA) Urine Ketones Urine Blood Urine Nitrite Urine Bilirubin Urine Urobilinogen Ur Leukocyte Esterase RPR Titer Nonreactive Assessment: 10/10/17 11:06 withdrawal sx - cont detox, fluids, psych consult, encoruage ambualtion
--- NOTE | 2017-10-10 14:39 | PN ---
BHS Progress Note Note: less withdrawal symptom,medication adjust,discharge on Sunday10/12/17 at 0700
[2017-10-10] MEDS: MELATONIN 5 MG TABLETS PO SCH (22:34)
[2017-10-10] MEDS: THIAMINE HCL 100 MG TABLET (FP) PO SCH (22:34)
[2017-10-10] MEDS: QUEtiapine FUMARATE 200 MG TABLET PO SCH (22:34)
[2017-10-11] MEDS: diazePAM 5 MG TABLET PO PRN (08:53)
[2017-10-11] MEDS ORDERED: METHADONE HCL 5 MG TABLET (FOR DETOX USE ONLY) PO ONE (10:00)
[2017-10-11] MEDS ORDERED: METHADONE HCL 10 MG TABLET (FOR DETOX USE ONLY) PO ONE (10:00)
[2017-10-11] MEDS: cloNIDine HCL 0.1 MG TABLET PO SCH ×2 (10:10→22:28)
[2017-10-11] MEDS: CITALOPRAM HYDROBROMIDE 10 MG TABLET (FP) PO SCH (10:10)
[2017-10-11] MEDS: RANITIDINE HCL 150 MG TABLET (FP) PO SCH ×2 (10:11→22:28)
[2017-10-11] MEDS: PRENATAL VITAMINS W/ FOLIC ACID TABLET (FP) PO SCH (10:11)
[2017-10-11] MEDS: NICOTINE 21 MG/24 HOURS TOPICAL PATCH TD SCH (10:12)
--- NOTE | 2017-10-11 14:40 | PN ---
BHS Progress Note (SOAP) Subjective: nausa, sweats, interrupetd sleep, anxiety, tremors Objective: 10/11/17 14:40 Vital Signs - 24 hr 10/10/17 10/10/17 10/10/17 14:57 17:13 21:51 Temperature 97 F L 98.2 F 97.5 F L Pulse Rate 63 51 L 57 L Respiratory 16 18 18 Rate Blood Pressure 118/84 102/64 108/65 10/11/17 10/11/17 10/11/17 00:30 03:30 06:00 Temperature 97.2 F L Pulse Rate 48 L Respiratory 18 18 18 Rate Blood Pressure 116/68 10/11/17 10:00 Temperature 97.1 F L Pulse Rate 67 Respiratory 19 Rate Blood Pressure 116/67 Laboratory Tests 10/08/17 10/09/17 10/09/17 15:20 07:00 07:00 WBC 7.8 RBC 5.28 Hgb 15.7 Hct 46.8 MCV 88.7 MCH 29.8 MCHC 33.6 RDW 14.4 Plt Count 186 D MPV 8.8 Sodium 139 Potassium 4.8 Chloride 108 H Carbon Dioxide 28 Anion Gap 3 L BUN 22 H Creatinine 1.4 H Creat Clearance w eGFR 53.64 Random Glucose 81 D Calcium 8.8 Total Bilirubin 0.4 D AST 9 L D ALT 21 D Alkaline Phosphatase 88 Total Protein 7.0 Albumin 3.7 Urine Color Yellow Urine Appearance Clear Urine pH 5.0 Ur Specific [place] 1.031 Urine Protein Negative Urine Glucose (UA) Negative Urine Ketones Negative Urine Blood Negative Urine Nitrite Negative Urine Bilirubin Negative Urine Urobilinogen 2.0 Ur Leukocyte Esterase Negative RPR Titer 10/09/17 07:00 WBC RBC Hgb Hct MCV MCH MCHC RDW Plt Count MPV Sodium Potassium Chloride Carbon Dioxide Anion Gap BUN Creatinine Creat Clearance w eGFR Random Glucose Calcium Total Bilirubin AST ALT Alkaline Phosphatase Total Protein Albumin Urine Color Urine Appearance Urine pH Ur Specific [place] Urine Protein Urine Glucose (UA) Urine Ketones Urine Blood Urine Nitrite Urine Bilirubin Urine Urobilinogen Ur Leukocyte Esterase RPR Titer Nonreactive Assessment: 10/11/17 14:40 withdraal sx - cont deotx, fluids, encoruage ambulation
[2017-10-11] MEDS: THIAMINE HCL 100 MG TABLET (FP) PO SCH (22:28)
[2017-10-11] MEDS: QUEtiapine FUMARATE 200 MG TABLET PO SCH (22:28)
[2017-10-11] MEDS: MELATONIN 5 MG TABLETS PO SCH (22:38)
[2017-10-12] MEDS ORDERED: METHADONE HCL 5 MG TABLET (FOR DETOX USE ONLY) PO ONE (06:00)
[2017-10-12 06:37] VITALS: BP 101/56; PULSE 52; TEMP 97.3
--- NOTE | 2017-10-12 08:20 | PN ---
S Progress Note (SOAP) Subjective: ALERT,NO COMPLAINT Objective: 10/12/17 08:18 Vital Signs Temperature 97.3 F L 10/12/17 06:00 Pulse Rate 52 L 10/12/17 06:00 Respiratory Rate 18 10/12/17 06:00 Blood Pressure 101/56 10/12/17 06:00 O2 Sat by Pulse Oximetry (%) Assessment: 10/12/17 08:18 DETOX COMPLETED,NO WITHDRAWAL SYMPTOM Plan: DISCAHRE TODAY,FOLLOW UP WITH AFTER CARE PROGRAM ARRANGEMENT
--- NOTE | 2017-10-12 08:26 | DS ---
[facility] Detox Discharge Summary Admission Date: 10/08/17 Discharge Date: 10/12/17 - History Present History: Cocaine Dependence, Opioid Dependence Additional Comments: FOLLOW UP WITH AFTER CARE PROGRAM ARRANGEMENT Pertinent Past History: GERD BIPOLAR DISORDER HEPATITIS C NICOTINE DEPENDENCE - Physical Exam Results Vital Signs: Vital Signs Temperature 97.3 F L 10/12/17 06:00 Pulse Rate 52 L 10/12/17 06:00 Respiratory Rate 18 10/12/17 06:00 Blood Pressure 101/56 10/12/17 06:00 O2 Sat by Pulse Oximetry (%) Pertinent Admission Physical Exam Findings: WITHDRAWAL SIGNS AND SYMPTOM Vital Signs Temperature 97.3 F L 10/12/17 06:00 Pulse Rate 52 L 10/12/17 06:00 Respiratory Rate 18 10/12/17 06:00 Blood Pressure 101/56 10/12/17 06:00 O2 Sat by Pulse Oximetry (%) Laboratory Last Values WBC 7.8 K/mm3 (4.0-10.0) 10/09/17 07:00 RBC 5.28 M/mm3 (4.00-5.60) 10/09/17 07:00 Hgb 15.7 GM/dL (11.7-16.9) 10/09/17 07:00 Hct 46.8 % (35.4-49) 10/09/17 07:00 MCV 88.7 fl (80-96) 10/09/17 07:00 MCH 29.8 pg (25.7-33.7) 10/09/17 07:00 MCHC 33.6 g/dl (32.0-35.9) 10/09/17 07:00 RDW 14.4 % (11.9-15.9) 10/09/17 07:00 Plt Count 186 K/MM3 (134-434) D 10/09/17 07:00 MPV 8.8 fl (7.5-11.1) 10/09/17 07:00 Sodium 139 mmol/L (136-145) 10/09/17 07:00 Potassium 4.8 mmol/L (3.5-5.1) 10/09/17 07:00 Chloride 108 mmol/L (98-107) H 10/09/17 07:00 Carbon Dioxide 28 mmol/L (21-32) 10/09/17 07:00 Anion Gap 3 (8-16) L 10/09/17 07:00 BUN 22 mg/dL (7-18) H 10/09/17 07:00 Creatinine 1.4 mg/dL (0.7-1.3) H 10/09/17 07:00 Creat Clearance w eGFR 53.64 (>60) 10/09/17 07:00 Random Glucose 81 mg/dL (74-106) D 10/09/17 07:00 Calcium 8.8 mg/dL (8.5-10.1) 10/09/17 07:00 Total Bilirubin 0.4 mg/dL (0.2-1.0) D 10/09/17 07:00 AST 9 U/L (15-37) L D 10/09/17 07:00 ALT 21 U/L (12-78) D 10/09/17 07:00 Alkaline Phosphatase 88 U/L (45-117) 10/09/17 07:00 Total Protein 7.0 g/dl (6.4-8.2) 10/09/17 07:00 Albumin 3.7 g/dl (3.4-5.0) 10/09/17 07:00 Urine Color Yellow 10/08/17 15:20 Urine Appearance Clear 10/08/17 15:20 Urine pH 5.0 (5.0-8.0) 10/08/17 15:20 Ur Specific [place] 1.031 (1.001-1.035) 10/08/17 15:20 Urine Protein Negative (NEGATIVE) 10/08/17 15:20 Urine Glucose (UA) Negative (NEGATIVE) 10/08/17 15:20 Urine Ketones Negative (NEGATIVE) 10/08/17 15:20 Urine Blood Negative (NEGATIVE) 10/08/17 15:20 Urine Nitrite Negative (NEGATIVE) 10/08/17 15:20 Urine Bilirubin Negative (<2.0 mg/dL) 10/08/17 15:20 Urine Urobilinogen 2.0 mg/dL (0.2-1.0) 10/08/17 15:20 Ur Leukocyte Esterase Negative (NEGATIVE) 10/08/17 15:20 RPR Titer Nonreactive (NONREACTIVE) 10/09/17 07:00 - Treatment Hospital Course: Detox Protocol Followed, Detoxed Safely, Responded well, Discharged Condition Good Patient has Accepted a Rehab Referral to: DECLINED - Medication Discharge Medications: Ambulatory Orders Citalopram Hydrobromide [Celexa -] 10 mg PO DAILY #30 tablet 10/08/17 Quetiapine Fumarate [Seroquel -] 200 mg PO HS #30 tablet 10/08/17 - Diagnosis (1) Opioid dependence with withdrawal Status: Acute (2) Cocaine dependence, uncomplicated Status: Deleted (3) Bipolar disorder Status: Deleted (4) GERD (gastroesophageal reflux disease) Status: Chronic Qualifiers: Esophagitis presence: without esophagitis Qualified Code(s): K21.9 - Gastro -esophageal reflux disease without esophagitis (5) Nicotine dependence Status: Chronic Qualifiers: Nicotine product type: cigarettes Substance use status: uncomplicated Qualified Code(s): F17.210 - Nicotine dependence, cigarettes, uncomplicated (6) Hepatitis C Status: Resolved Qualifiers: Viral hepatitis chronicity: chronic Hepatic coma status: without hepatic coma Qualified Code(s): B18.2 - Chronic viral hepatitis C - AMA Did Patient Leave Against Medical Advice: No
[2017-10-12] MEDS ORDERED: METHADONE HCL 10 MG TABLET (FOR DETOX USE ONLY) PO ONE (10:00)
[2017-10-13] MEDS ORDERED: METHADONE HCL 5 MG TABLET (FOR DETOX USE ONLY) PO ONE (06:00)
== END 2017-10-12 06:36 | disposition home or self-care (01) | DRG 773 ==
LOC: YASAS 10:04 → Y6N 14:05
PROVIDERS: ADMIT Internal Medicine; ATTEND Internal Medicine
PROC: HZ2ZZZZ Detoxification Services for Substance Abuse Treatment (ICD-10-PCS; principal; 2017-10-08)
DX: F11.23 Opioid dependence with withdrawal (principal); F10.20 Alcohol dependence, uncomplicated; F14.280 Cocaine dependence with cocaine-induced anxiety disorder; F17.210 Nicotine dependence, cigarettes, uncomplicated; F33.1 Major depressive disorder, recurrent, moderate; F31.32 Bipolar disorder, current episode depressed, moderate; F19.24 Other psychoactive substance dependence with psychoactive substance-induced mood disorder; G47.00 Insomnia, unspecified; K21.9 Gastro-esophageal reflux disease without esophagitis; E66.09 Other obesity due to excess calories; Z68.32 Body mass index [BMI] 32.0-32.9, adult
CPT/HCPCS: 36415; 80053; 81003; 85027; 86593; 93005; 93010; J0735

== ENCOUNTER 2017-12-19 10:36 | Inpatient (IN) | payer OTHER ==
[2017-12-19 12:00] VITALS: BMI 30.6
--- NOTE | 2017-12-19 13:34 | HP ---
COWS - Scale Resting Pulse: 0= [place] 80 or Below Sweatin= Chills/Flushing Restless Observation: 3= Extraneous Movement Pupil Size: 1= Pupils >than Normal Bone or Joint Aches: 2= Severe Diffuse Aches Runny Nose/ Eye Tearin= Runny Nose/Eyes GI Upset > 30mins: 2= Nausea/Diarrhea Tremor Observation: 2= Slight Tremor Visible Yawning Observation: 2= >3x During Session Anxiety or Irritability: 2=Irritable/Anxious Goose Flesh Skin: 0=Smooth Skin COWS Score: 17 Admission ROS S - HPI Chief Complaint: 52 years old male with long history of opiate nicotine dependence has depression denies medical issue is admitted to detox Allergies/Adverse Reactions: Allergies Allergy/AdvReac Type Severity Reaction Status Date / Time penicillin G Allergy Severe Hives Verified 12/19/17 13:34 History of Present Illness: opiate withdrawal sx Exam Limitations: No Limitations - Ebola screening Have you traveled outside of the country in the last 21 days: No Have you had contact with anyone from an Ebola affected area: No Have you been sick,other than usual withdrawal symptoms: No Do you have a fever: No - Review of Systems Constitutional: Changes in sleep, Weight Stable EENT: reports: No Symptoms Reported Respiratory: reports: No Symptoms reported Cardiac: reports: No Symptoms Reported GI: reports: Nausea, Poor Fluid Intake, Indigestion, Abdominal cramping : reports: No Symptoms Reported Musculoskeletal: reports: Back Pain, Joint Pain, Muscle Pain, Neck Pain Integumentary: reports: Change in Color (left inner elbow iv campos) Neuro: reports: Tremors Endocrine: reports: No Symptoms Reported Hematology: reports: No Symptoms Reported Psychiatric: reports: Judgement Intact, Orientated x3, Anxious, Depressed Other Systems: Reviewed and Negative Patient History - Patient Medical History Hx Anemia: No Hx Asthma: No Hx Chronic Obstructive Pulmonary Disease (COPD): No Hx Cancer: No Hx Cardiac Disorders: No Hx Congestive Heart Failure: No Hx Hypertension: No Hx Hypercholesterolemia: No Hx Pacemaker: No HX Cerebrovascular Accident: No Hx Seizures: No Hx Dementia: No Hx Diabetes: No Hx Gastrointestinal Disorders: Yes (acid reflux) Hx Liver Disease: No Hx Genitourinary Disorders: No Hx Sexually Transmitted Disorders: No Hx Renal Disease (ESRD): No Hx Thyroid Disease: No Hx Human Immunodeficiency Virus (HIV): No (LAST 09/02 NEGATIVE) Hx Hepatitis C: Yes (Completed Treatment: 03/2017.) Hx Depression: Yes (ANXIETY) Hx Suicide Attempt: No Hx Bipolar Disorder: No Hx Schizophrenia: No - Patient Surgical History Past Surgical History: Yes Hx Neurologic Surgery: No Hx Cataract Extraction: No Hx Cardiac Surgery: No Hx Lung Surgery: No Hx Breast Surgery: No Hx Breast Biopsy: No Hx Abdominal Surgery: Yes (LT. INGUINAL HERNIA REPAIR (DURING CHILDHOOD).) Hx Appendectomy: No Hx Cholecystectomy: No Hx Genitourinary Surgery: Yes (TORSION OF TESTICLES (DURING 20'S).) Hx Orthopedic Surgery: No Other Surgical History: tonsillectomy at 12 years old.OSTEOMYELITIS RT. CLAVICLE BONE SHAVING Anesthesia Reaction: No - PPD History Previous Implant?: Yes Documented Results: Negative w/proof Implanted On Prior [facility] Admission?: Yes Date: 09/06/17 Results: 0 mm PPD to be Administered?: No - Smoking Cessation Smoking history: Current every day smoker Have you smoked in the past 12 months: Yes Aproximately how many cigarettes per day: 10 Cigars Per Day: 0 Hx Chewing Tobacco Use: No Initiated information on smoking cessation: Yes 'Breaking Loose' booklet given: 12/19/17 - Substance & Tx. History Hx Alcohol Use: No Hx Substance Use: Yes Substance Use Type: Cocaine, Opiates Hx Substance [facility]: [facility] Family Disease History - Family Disease History Family Disease History: Heart Disease: Mother (UTERUS; HTN), CA: Mother, Other: Father (no contact), Brother (DRUG USE.) Admission Physical Exam S - Vital Signs Vital Signs: Vital Signs - 24 hr 12/19/17 11:58 Temperature 98.1 F Pulse Rate 77 Respiratory 18 Rate Blood Pressure 120/71 - Physical General Appearance: Yes: Appropriately Dressed, Mild Distress, Tremorous, Irritable, Sweating, Anxious HEENTM: Yes: Hearing grossly Normal, Normocephalic, Normal Voice Respiratory: Yes: Chest Non-Tender, Lungs Clear, Normal Breath Sounds, No Respiratory Distress, No Accessory Muscle Use Neck: Yes: Supple, Trachea in good position Breast: Yes: Breasts Symetrical, No Discharge Cardiology: Yes: Regular Rhythm, Regular Rate, S1, S2 Abdominal: Yes: Non Tender, Flat, Increased Bowel Sounds Genitourinary: Yes: Within Normal Limits Back: Yes: Normal Inspection Musculoskeletal: Yes: full range of Motion, Gait Steady, Back pain, Muscle Pain Extremities: Yes: Normal Range of Motion, Non-Tender, Tremors Neurological: Yes: Fully Oriented, Alert, Motor Strength 5/5, Normal Response, Depressed Affect Integumentary: Yes: Warm, Track Campos Lymphatic: Yes: Within Normal Limits - Diagnostic (1) Opioid dependence with withdrawal Current Visit: Yes Status: Acute (2) GERD (gastroesophageal reflux disease) Current Visit: Yes Status: Chronic Qualifiers: Esophagitis presence: without esophagitis Qualified Code(s): K21.9 - Gastro -esophageal reflux disease without esophagitis (3) Nicotine dependence Current Visit: Yes Status: Acute Qualifiers: Nicotine product type: cigarettes Substance use status: in withdrawal Qualified Code(s): F17.213 - Nicotine dependence, cigarettes, with withdrawal (4) Hepatitis C Current Visit: No Status: Resolved Qualifiers: Viral hepatitis chronicity: chronic Hepatic coma status: without hepatic coma Qualified Code(s): B18.2 - Chronic viral hepatitis C Comment: Completed Treatment (2016). Cleared for Admission [facility] - Detox or Rehab [facility] Level of Care: Medically Managed Detox Regimen/Protocol: Methadone [facility] Breath Alcohol Content Breath Alcohol Content: 0 Urine Drug Screen - Control Is Test Valid: Yes - Results Drug Screen Negative: No Urine Drug Screen Results: CORINE-Cocaine, OPI-Opiates, MET-Methamphetamine
[2017-12-19] MEDS ORDERED: MAG HYDROX/AL HYDROX/SIMETH 30 ML UNIT-DOSE CUP PO PRN (13:48)
[2017-12-19] MEDS ORDERED: MAGNESIUM HYDROX 2400MG/30ML ORAL SUSPENSION 30 ML CUP PO PRN (13:48)
[2017-12-19] MEDS ORDERED: P-EPHED 60MG/TRIPROLIDI 2.5MG TABLET PO PRN (13:48)
[2017-12-19] MEDS ORDERED: MENTHOL/PHENOL 1 EACH UD MM PRN (13:48)
[2017-12-19] MEDS ORDERED: MAGNESIUM CITRATE 300 ML BOTTLE PO PRN (13:48)
[2017-12-19] MEDS ORDERED: guaiFENesin/D-METHORPHAN HB 10 ML UNIT-DOSE CUPS PO PRN (13:48)
[2017-12-19] MEDS ORDERED: NICOTINE POLACRILEX 2 MG GUM BUC PRN (13:48)
[2017-12-19] MEDS ORDERED: LOPERAMIDE HCL 2 MG CAPSULE PO PRN (13:48)
[2017-12-19] MEDS ORDERED: ACETAMINOPHEN 325 MG TABLET (FP) PO PRN (13:48)
[2017-12-19] MEDS ORDERED: METHADONE HCL 10 MG TABLET (FOR DETOX USE ONLY) PO ONE ×2 (15:15→23:00)
[2017-12-19] MEDS: RANITIDINE HCL 150 MG TABLET (FP) PO SCH ×2 (16:52→22:05)
[2017-12-19] MEDS: diazePAM 5 MG TABLET PO PRN ×2 (16:53→22:07)
[2017-12-19] MEDS: NICOTINE 14 MG/24 HOURS TOPICAL PATCH TD SCH (16:53)
[2017-12-19] MEDS ORDERED: MELATONIN 5 MG TABLETS PO PRN (22:00)
[2017-12-19] MEDS: THIAMINE HCL 100 MG TABLET (FP) PO SCH (22:05)
[2017-12-20 07:04] LABS: URINE APPEARANCE CLEAR; URINE BILIRUBIN NEGATIVE (<2.0 mg/dL); URINE BLOOD NEGATIVE (NEGATIVE); URINE COLOR DKYELLOW; URINE GLUCOSE (UA) NEGATIVE (NEGATIVE); URINE KETONE NEGATIVE (NEGATIVE); URINE LEUK ESTERASE NEGATIVE (NEGATIVE); URINE NITRITE NEGATIVE (NEGATIVE)
[2017-12-20 07:05] LABS: URINE PROTEIN 1+ (NEGATIVE)
[2017-12-20 07:51] LABS: EPI CELLS RARE /HPF (FEW); URINE HYALINE CAST 1 /lpf; URINE MUCUS RARE
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
[2017-12-20] MEDS ORDERED: METHADONE HCL 10 MG TABLET (FOR DETOX USE ONLY) PO ONE (10:00)
[2017-12-20] MEDS: diazePAM 5 MG TABLET PO PRN ×3 (10:25→19:06)
[2017-12-20] MEDS: RANITIDINE HCL 150 MG TABLET (FP) PO SCH ×2 (10:25→22:16)
[2017-12-20] MEDS: NICOTINE 14 MG/24 HOURS TOPICAL PATCH TD SCH (10:25)
[2017-12-20] MEDS: PRENATAL VITAMINS W/ FOLIC ACID TABLET (FP) PO SCH (10:25)
[2017-12-20] MEDS: CITALOPRAM HYDROBROMIDE 10 MG TABLET (FP) PO SCH (10:26)
[2017-12-20 10:42] LABS: HEMATOCRIT 48.7 % (35.4-49); HEMOGLOBIN 16.3 GM/dL (11.7-16.9); MCH 29.2 pg (25.7-33.7); MCHC 33.4 g/dl (32.0-35.9); MEAN CELL VOLUME 87.5 fl (80-96); MEAN PLT VOLUME 9.4 fl (7.5-11.1); PLATELET COUNT 212 K/MM3 (134-434); RBC 5.57 M/mm3 (4.00-5.60); RDW 14.3 % (11.9-15.9)
[2017-12-20 10:44] LABS: CHLORIDE 103 mmol/L (98-107); POTASSIUM 4.8 mmol/L (3.5-5.1); SODIUM 140 mmol/L (136-145)
[2017-12-20 11:31] LABS: ALBUMIN 4.1 g/dl (3.4-5.0); ANION GAP 7 (8-16); BLOOD UREA NITROGEN 15 mg/dL (7-18); CALCIUM 9.5 mg/dL (8.5-10.1); CO2 28 mmol/L (21-32); GLUCOSE,RANDOM 69 mg/dL (74-106)
[2017-12-20 11:36] LABS: ALK PHOS 88 U/L (45-117); BILIRUBIN,TOTAL 0.5 mg/dL (0.2-1.0); CREATININE 1.2 mg/dL (0.7-1.3); SGOT/AST 16 U/L (15-37); SGPT/ALT 24 U/L (12-78); TOT PROT 7.7 g/dl (6.4-8.2)
[2017-12-20] MEDS ORDERED: ONDANSETRON *ODT* 4 MG TABLET SL PRN ×2 (11:42→11:52)
--- NOTE | 2017-12-20 11:43 | EKG ---
Test Reason : Blood Pressure : / mmHG Vent. Rate : 075 BPM Atrial Rate : 075 BPM P-R Int : 160 ms QRS Dur : 092 ms QT Int : 370 ms P-R-T Axes : 070 083 052 degrees QTc Int : 413 ms NORMAL SINUS RHYTHM NORMAL ECG WHEN COMPARED WITH ECG OF 08-OCT-2017 14:32, VENT. RATE HAS INCREASED BY 25 BPM Confirmed by CALI SALOMON MD ([id number]) on 12/20/2017 11:43:03 AM Referred By: Confirmed By:CALI SALOMON MD
[2017-12-20] MEDS ORDERED: COLLOIDAL OATMEAL 1 BAR EACH TP PRN (12:46)
--- NOTE | 2017-12-20 14:44 | PN ---
BHS COWS - Scale Resting Pulse: 1= [place] 81-100 Sweatin= Chills/Flushing Restless Observation: 3= Extraneous Movement Pupil Size: 2= Moderately Dilated Bone or Joint Aches: 4=Acute Joint/Muscle Pain Runny Nose/ Eye Tearin= None GI Upset > 30mins: 3= Vomiting/Diarrhea Tremor Observation of Outstretched Hands: 2= Slight Tremor Visible Yawning Observation: 1= 1-2x During Session Anxiety or Irritability: 1=Feels Anxious/Irritable Goose Flesh Skin: 0=Smooth Skin COWS Score: 18 BHS Progress Note (SOAP) Subjective: ANXIETY,TREMORS,MUSCLE ACHES,NAUSEA/VOMITING/DIARRHEA. GENERALIZED BODY ITCH WITHOUT RASH. Objective: 12/20/17 14:41 Vital Signs - 8 hr 12/20/17 09:53 Temperature 95.5 F L Pulse Rate 91 H Respiratory 16 Rate Blood Pressure 134/97 Laboratory Tests 12/19/17 12/20/17 12/20/17 22:00 06:00 06:00 WBC 8.0 RBC 5.57 Hgb 16.3 Hct 48.7 MCV 87.5 MCH 29.2 MCHC 33.4 RDW 14.3 Plt Count 212 MPV 9.4 Sodium 140 Potassium 4.8 Chloride 103 Carbon Dioxide 28 Anion Gap 7 L BUN 15 D Creatinine 1.2 Creat Clearance w eGFR > 60 Random Glucose 69 L Calcium 9.5 Total Bilirubin 0.5 D AST 16 D ALT 24 Alkaline Phosphatase 88 Total Protein 7.7 Albumin 4.1 Urine Color Dkyellow Urine Appearance Clear Urine pH 5.0 Ur Specific [place] 1.026 Urine Protein 1+ H Urine Glucose (UA) Negative Urine Ketones Negative Urine Blood Negative Urine Nitrite Negative Urine Bilirubin Negative Urine Urobilinogen 2.0 Ur Leukocyte Esterase Negative Urine WBC (Auto) 1 Urine RBC (Auto) <1 Ur Epithelial Cells Rare Hyaline Casts 1 Urine Mucus Rare Assessment: 12/20/17 14:42 WITHDRAWAL SX Plan: CONTINUE DETOX. AVEENO SOAP FOR BATH
[2017-12-20] MEDS: QUEtiapine FUMARATE 200 MG TABLET PO SCH (22:16)
[2017-12-20] MEDS: THIAMINE HCL 100 MG TABLET (FP) PO SCH (22:16)
[2017-12-21] MEDS: diazePAM 5 MG TABLET PO PRN ×5 (02:57→22:21)
[2017-12-21] MEDS: CITALOPRAM HYDROBROMIDE 10 MG TABLET (FP) PO SCH (09:51)
[2017-12-21] MEDS: RANITIDINE HCL 150 MG TABLET (FP) PO SCH ×2 (09:51→22:21)
[2017-12-21] MEDS: PRENATAL VITAMINS W/ FOLIC ACID TABLET (FP) PO SCH (09:51)
[2017-12-21] MEDS ORDERED: METHADONE HCL 5 MG TABLET (FOR DETOX USE ONLY) PO ONE (10:00)
[2017-12-21] MEDS: NICOTINE 14 MG/24 HOURS TOPICAL PATCH TD SCH (11:06)
--- NOTE | 2017-12-21 12:15 | PN ---
BHS COWS - Scale Resting Pulse: 0= [place] 80 or Below Sweatin= Chills/Flushing Restless Observation: 1= Difficult to Sit Still Pupil Size: 0= Normal to Room Light Bone or Joint Aches: 0= None Runny Nose/ Eye Tearin= Nasal Congestion GI Upset > 30mins: 0= None Tremor Observation of Outstretched Hands: 2= Slight Tremor Visible Yawning Observation: 2= >3x During Session Anxiety or Irritability: 2=Irritable/Anxious Goose Flesh Skin: 3=Piloerection COWS Score: 12 BHS Progress Note (SOAP) Subjective: Tremors, Fatigue, Interrupted Sleep, Sweating. Objective: PATIENT A & O X 3. NO ACUTE DISTRESS. 12/21/17 12:13 Vital Signs Temperature 98.4 F 12/21/17 09:16 Pulse Rate 76 12/21/17 09:16 Respiratory Rate 18 12/21/17 09:16 Blood Pressure 108/82 12/21/17 09:16 O2 Sat by Pulse Oximetry (%) Laboratory Tests 12/19/17 12/20/17 12/20/17 22:00 06:00 06:00 WBC 8.0 RBC 5.57 Hgb 16.3 Hct 48.7 MCV 87.5 MCH 29.2 MCHC 33.4 RDW 14.3 Plt Count 212 MPV 9.4 Sodium 140 Potassium 4.8 Chloride 103 Carbon Dioxide 28 Anion Gap 7 L BUN 15 D Creatinine 1.2 Creat Clearance w eGFR > 60 Random Glucose 69 L Calcium 9.5 Total Bilirubin 0.5 D AST 16 D ALT 24 Alkaline Phosphatase 88 Total Protein 7.7 Albumin 4.1 Urine Color Dkyellow Urine Appearance Clear Urine pH 5.0 Ur Specific [place] 1.026 Urine Protein 1+ H Urine Glucose (UA) Negative Urine Ketones Negative Urine Blood Negative Urine Nitrite Negative Urine Bilirubin Negative Urine Urobilinogen 2.0 Ur Leukocyte Esterase Negative Urine WBC (Auto) 1 Urine RBC (Auto) <1 Ur Epithelial Cells Rare Hyaline Casts 1 Urine Mucus Rare RPR Titer 12/20/17 06:00 WBC RBC Hgb Hct MCV MCH MCHC RDW Plt Count MPV Sodium Potassium Chloride Carbon Dioxide Anion Gap BUN Creatinine Creat Clearance w eGFR Random Glucose Calcium Total Bilirubin AST ALT Alkaline Phosphatase Total Protein Albumin Urine Color Urine Appearance Urine pH Ur Specific [place] Urine Protein Urine Glucose (UA) Urine Ketones Urine Blood Urine Nitrite Urine Bilirubin Urine Urobilinogen Ur Leukocyte Esterase Urine WBC (Auto) Urine RBC (Auto) Ur Epithelial Cells Hyaline Casts Urine Mucus RPR Titer Nonreactive LABS NOTED. Assessment: 12/21/17 12:13 WITHDRAWAL SYMPTOMS. Plan: CONTINUE DETOX. INCREASE DAILY PO FLUID INTAKE. ENCOURAGE AMBULATION.
[2017-12-21] MEDS: THIAMINE HCL 100 MG TABLET (FP) PO SCH (22:21)
[2017-12-21] MEDS: QUEtiapine FUMARATE 200 MG TABLET PO SCH (22:21)
[2017-12-22] MEDS ORDERED: METHADONE HCL 5 MG TABLET (FOR DETOX USE ONLY) PO ONE (10:00)
[2017-12-22] MEDS: NICOTINE 14 MG/24 HOURS TOPICAL PATCH TD SCH (10:40)
[2017-12-22] MEDS: PRENATAL VITAMINS W/ FOLIC ACID TABLET (FP) PO SCH (10:40)
[2017-12-22] MEDS: RANITIDINE HCL 150 MG TABLET (FP) PO SCH ×2 (10:40→22:21)
[2017-12-22] MEDS: CITALOPRAM HYDROBROMIDE 10 MG TABLET (FP) PO SCH (10:40)
[2017-12-22] MEDS: diazePAM 5 MG TABLET PO PRN (10:42)
[2017-12-22] MEDS ORDERED: NAPROXEN 375 MG TABLET (FP) PO ONE (14:32)
--- NOTE | 2017-12-22 14:42 | PN ---
BHS Progress Note (SOAP) Subjective: Anxious, Body Aches. Objective: PATIENT A & O X 3, OBSERVED AMBULATING ON UNIT. NO ACUTE DISTRESS. 12/22/17 14:40 Vital Signs Temperature 96.1 F L 12/22/17 14:08 Pulse Rate 73 12/22/17 14:08 Respiratory Rate 18 12/22/17 14:08 Blood Pressure 141/88 12/22/17 14:08 O2 Sat by Pulse Oximetry (%) Laboratory Tests 12/19/17 12/20/17 12/20/17 22:00 06:00 06:00 WBC 8.0 RBC 5.57 Hgb 16.3 Hct 48.7 MCV 87.5 MCH 29.2 MCHC 33.4 RDW 14.3 Plt Count 212 MPV 9.4 Sodium 140 Potassium 4.8 Chloride 103 Carbon Dioxide 28 Anion Gap 7 L BUN 15 D Creatinine 1.2 Creat Clearance w eGFR > 60 Random Glucose 69 L Calcium 9.5 Total Bilirubin 0.5 D AST 16 D ALT 24 Alkaline Phosphatase 88 Total Protein 7.7 Albumin 4.1 Urine Color Dkyellow Urine Appearance Clear Urine pH 5.0 Ur Specific [place] 1.026 Urine Protein 1+ H Urine Glucose (UA) Negative Urine Ketones Negative Urine Blood Negative Urine Nitrite Negative Urine Bilirubin Negative Urine Urobilinogen 2.0 Ur Leukocyte Esterase Negative Urine WBC (Auto) 1 Urine RBC (Auto) <1 Ur Epithelial Cells Rare Hyaline Casts 1 Urine Mucus Rare RPR Titer 12/20/17 06:00 WBC RBC Hgb Hct MCV MCH MCHC RDW Plt Count MPV Sodium Potassium Chloride Carbon Dioxide Anion Gap BUN Creatinine Creat Clearance w eGFR Random Glucose Calcium Total Bilirubin AST ALT Alkaline Phosphatase Total Protein Albumin Urine Color Urine Appearance Urine pH Ur Specific [place] Urine Protein Urine Glucose (UA) Urine Ketones Urine Blood Urine Nitrite Urine Bilirubin Urine Urobilinogen Ur Leukocyte Esterase Urine WBC (Auto) Urine RBC (Auto) Ur Epithelial Cells Hyaline Casts Urine Mucus RPR Titer Nonreactive LABS NOTED. Assessment: 12/22/17 14:41 WITHDRAWAL SYMPTOMS. Plan: CONTINUE DETOX.
[2017-12-22] MEDS: NAPROXEN 375 MG TABLET (FP) PO SCH (22:20)
[2017-12-22] MEDS: THIAMINE HCL 100 MG TABLET (FP) PO SCH (22:21)
[2017-12-22] MEDS: QUEtiapine FUMARATE 200 MG TABLET PO SCH (22:21)
[2017-12-23] MEDS ORDERED: METHADONE HCL 10 MG TABLET (FOR DETOX USE ONLY) PO ONE (10:00)
[2017-12-23] MEDS: PRENATAL VITAMINS W/ FOLIC ACID TABLET (FP) PO SCH (10:08)
[2017-12-23] MEDS: CITALOPRAM HYDROBROMIDE 10 MG TABLET (FP) PO SCH (10:09)
[2017-12-23] MEDS: RANITIDINE HCL 150 MG TABLET (FP) PO SCH ×2 (10:09→22:04)
[2017-12-23] MEDS: NAPROXEN 375 MG TABLET (FP) PO SCH ×2 (10:09→22:05)
[2017-12-23] MEDS: NICOTINE 14 MG/24 HOURS TOPICAL PATCH TD SCH (10:10)
--- NOTE | 2017-12-23 13:28 | PN ---
BHS Progress Note (SOAP) Subjective: SWEATS, ANXIETY,FATIGUE. ALERT O X 3. Objective: 12/23/17 13:28 Vital Signs 12/23/17 12/23/17 06:17 09:53 Temperature 97 F L 96.4 F L Pulse Rate 59 L 64 Respiratory 16 18 Rate Blood Pressure 100/64 107/69 Laboratory Tests 12/19/17 12/20/17 12/20/17 22:00 06:00 06:00 WBC 8.0 RBC 5.57 Hgb 16.3 Hct 48.7 MCV 87.5 MCH 29.2 MCHC 33.4 RDW 14.3 Plt Count 212 MPV 9.4 Sodium 140 Potassium 4.8 Chloride 103 Carbon Dioxide 28 Anion Gap 7 L BUN 15 D Creatinine 1.2 Creat Clearance w eGFR > 60 Random Glucose 69 L Calcium 9.5 Total Bilirubin 0.5 D AST 16 D ALT 24 Alkaline Phosphatase 88 Total Protein 7.7 Albumin 4.1 Urine Color Dkyellow Urine Appearance Clear Urine pH 5.0 Ur Specific [place] 1.026 Urine Protein 1+ H Urine Glucose (UA) Negative Urine Ketones Negative Urine Blood Negative Urine Nitrite Negative Urine Bilirubin Negative Urine Urobilinogen 2.0 Ur Leukocyte Esterase Negative Urine WBC (Auto) 1 Urine RBC (Auto) <1 Ur Epithelial Cells Rare Hyaline Casts 1 Urine Mucus Rare RPR Titer 12/20/17 06:00 WBC RBC Hgb Hct MCV MCH MCHC RDW Plt Count MPV Sodium Potassium Chloride Carbon Dioxide Anion Gap BUN Creatinine Creat Clearance w eGFR Random Glucose Calcium Total Bilirubin AST ALT Alkaline Phosphatase Total Protein Albumin Urine Color Urine Appearance Urine pH Ur Specific [place] Urine Protein Urine Glucose (UA) Urine Ketones Urine Blood Urine Nitrite Urine Bilirubin Urine Urobilinogen Ur Leukocyte Esterase Urine WBC (Auto) Urine RBC (Auto) Ur Epithelial Cells Hyaline Casts Urine Mucus RPR Titer Nonreactive Assessment: 12/23/17 13:28 ABHI SX Plan: CONTINUE DETOX
[2017-12-23] MEDS: THIAMINE HCL 100 MG TABLET (FP) PO SCH (22:04)
[2017-12-23] MEDS: QUEtiapine FUMARATE 200 MG TABLET PO SCH (22:04)
[2017-12-24] MEDS ORDERED: METHADONE HCL 5 MG TABLET (FOR DETOX USE ONLY) PO ONE (06:00)
[2017-12-24 06:12] VITALS: BP 104/62; PULSE 55; TEMP 97.1
--- NOTE | 2017-12-24 09:40 | PN ---
S Progress Note (SOAP) Subjective: Denies any complaints Objective: 12/24/17 09:38 In no acute distress Vital Signs Temperature 97.1 F L 12/24/17 06:11 Pulse Rate 55 L 12/24/17 06:11 Respiratory Rate 18 12/24/17 06:30 Blood Pressure 104/62 12/24/17 06:11 O2 Sat by Pulse Oximetry (%) Assessment: 12/24/17 09:39 Detox successfully completed Plan: For discharge
--- NOTE | 2017-12-24 09:45 | DS ---
[facility] Detox Discharge Summary Admission Date: 12/19/17 Discharge Date: 12/24/17 - History Additional Comments: Pt for discharge To do Outpatient rehab at [facility] No prescription for medical medication needed States he is moving to [place] in 4 wks Pertinent Past History: Hep C GERD Obesity - Physical Exam Results Vital Signs: Vital Signs Temperature 97.1 F L 12/24/17 06:11 Pulse Rate 55 L 12/24/17 06:11 Respiratory Rate 18 12/24/17 06:30 Blood Pressure 104/62 12/24/17 06:11 O2 Sat by Pulse Oximetry (%) Pertinent Admission Physical Exam Findings: Withdrawal sx - Treatment Hospital Course: Detox Protocol Followed, Detoxed Safely, Responded well, Discharged Condition Good Patient has Accepted a Rehab Referral to: Out patient at [place] - Medication Discharge Medications: Ambulatory Orders Citalopram Hydrobromide [Celexa -] 10 mg PO DAILY #30 tablet 10/08/17 Quetiapine Fumarate [Seroquel -] 200 mg PO HS #30 tablet 10/08/17 - Diagnosis (1) Cocaine dependence Status: Acute Qualifiers: Substance use status: with cocaine-induced anxiety disorder Qualified Code( s): 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 (2) Insomnia Status: Acute (3) Nicotine dependence Status: Acute Qualifiers: Nicotine product type: cigarettes Substance use status: in withdrawal Qualified Code(s): F17.213 - Nicotine dependence, cigarettes, with withdrawal (4) Opioid dependence with withdrawal Status: Acute (5) Substance induced mood disorder Status: Acute (6) Chronic low back pain Status: Chronic Qualifiers: Back pain laterality: unspecified Sciatica presence: unspecified whether sciatica present Qualified Code(s): M54.5 - Low back pain; G89.29 - Other chronic pain (7) GERD (gastroesophageal reflux disease) Status: Chronic Qualifiers: Esophagitis presence: esophagitis presence not specified Qualified Code(s) : K21.9 - Gastro-esophageal reflux disease without esophagitis (8) Obesity Status: Chronic Qualifiers: Obesity type: due to excess calories (9) Bipolar affective, depress, mod Status: Suspected (10) Hepatitis C Status: Resolved Qualifiers: Viral hepatitis chronicity: chronic Hepatic coma status: without hepatic coma Qualified Code(s): B18.2 - Chronic viral hepatitis C - AMA Did Patient Leave Against Medical Advice: No
--- NOTE | 2017-12-24 13:05 | PN ---
[facility] Progress Note Note: Psychiatry Attending's note : Called by PETERSON Espinosa to address scripts. For citalopram 10 mg/day + quetiapine 200 mg/hs. Mr Osei is discharged today.Needs his scripts. Chart reviewed.Medications verified.Records revisited. 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 Patient just called the unit to inquire about his medications. Intervention : Seroquel 200 mg po hs tab # 30. Celexa 10 mg tab # 30 . Scripts sent electronically to [facility].
== END 2017-12-24 08:52 | disposition home or self-care (01) | DRG 773 ==
LOC: YASAS 10:36 → Y3N 14:59
PROVIDERS: ADMIT Surgery; ATTEND Surgery
PROC: HZ2ZZZZ Detoxification Services for Substance Abuse Treatment (ICD-10-PCS; principal; 2017-12-19)
DX: F11.23 Opioid dependence with withdrawal (principal); F14.280 Cocaine dependence with cocaine-induced anxiety disorder; F17.213 Nicotine dependence, cigarettes, with withdrawal; F19.24 Other psychoactive substance dependence with psychoactive substance-induced mood disorder; F31.9 Bipolar disorder, unspecified; G47.00 Insomnia, unspecified; K21.9 Gastro-esophageal reflux disease without esophagitis; B18.2 Chronic viral hepatitis C; M54.5 Low back pain; G89.29 Other chronic pain; E66.09 Other obesity due to excess calories; Z68.30 Body mass index [BMI] 30.0-30.9, adult; Z88.0 Allergy status to penicillin
CPT/HCPCS: 36415; 80053; 81003; 81015; 85027; 86593; 93005; 93010

== ENCOUNTER 2018-01-30 15:33 | Inpatient (IN) | payer OTHER ==
[2018-01-30 18:26] VITALS: BMI 30.9
--- NOTE | 2018-01-30 20:57 | HP ---
COWS - Scale Resting Pulse: 0= [place] 80 or Below Sweatin=Flushed/Facial Moisture Restless Observation: 1= Difficult to Sit Still Pupil Size: 1= Pupils >than Normal Bone or Joint Aches: 2= Severe Diffuse Aches Runny Nose/ Eye Tearin= Runny Nose/Eyes GI Upset > 30mins: 1= Stomach Cramp Tremor Observation: 2= Slight Tremor Visible Yawning Observation: 0= None Anxiety or Irritability: 4=Extreme Anxiety Goose Flesh Skin: 3=Piloerection COWS Score: 18 Admission ROS [facility] Chief Complaint: Heroin withdrawal symptoms Allergies/Adverse Reactions: Allergies Allergy/AdvReac Type Severity Reaction Status Date / Time penicillin G Allergy Severe Hives Verified 01/30/18 18:12 History of Present Illness: 52 years old male with a long history of heroin dependence is seeking admission to detox. Patient has been to previous detox and reports 7 years sobriety. He has medical of left testicular torsion, anxiety, GERD, low back pain, depression and Hep C (treated). He denies suicide attempt and suicidal ideation at this time. Exam Limitations: No Limitations - Ebola screening Have you traveled outside of the country in the last 21 days: No (N) Have you had contact with anyone from an Ebola affected area: No Have you been sick,other than usual withdrawal symptoms: No Do you have a fever: No - Review of Systems Constitutional: Loss of Appetite, Malaise, Night Sweats, Weakness EENT: reports: Tinnitus, Sinus Pressure Respiratory: reports: No Symptoms reported Cardiac: reports: No Symptoms Reported GI: reports: Poor Appetite, Poor Fluid Intake : reports: No Symptoms Reported Musculoskeletal: reports: Back Pain, Joint Pain, Muscle Weakness Integumentary: reports: Dryness Neuro: reports: Tremors Endocrine: reports: No Symptoms Reported Hematology: reports: No Symptoms Reported Psychiatric: reports: Anxious, Depressed Other Systems: Reviewed and Negative Patient History - Patient Medical History Hx Anemia: No Hx Asthma: No Hx Chronic Obstructive Pulmonary Disease (COPD): No Hx Cancer: No Hx Cardiac Disorders: No Hx Congestive Heart Failure: No Hx Hypertension: No Hx Hypercholesterolemia: No Hx Pacemaker: No HX Cerebrovascular Accident: No Hx Seizures: No Hx Dementia: No Hx Diabetes: No Hx Gastrointestinal Disorders: Yes (GERD - Ranitidine) Hx Liver Disease: No Hx Genitourinary Disorders: No Hx Sexually Transmitted Disorders: No Hx Renal Disease (ESRD): No Hx Thyroid Disease: No Hx Human Immunodeficiency Virus (HIV): No ( NEGATIVE 2017) Hx Hepatitis C: Yes (Completed Treatment: 03/2017.) Hx Depression: Yes (SEROQUEL) Hx Suicide Attempt: No (Denies suicide attempt and suicidal ideation at this time) Hx Bipolar Disorder: No Hx Schizophrenia: No Other Medical History: ANXIETY-CELEXA - Patient Surgical History Past Surgical History: Yes Hx Neurologic Surgery: No Hx Cataract Extraction: No Hx Cardiac Surgery: No Hx Lung Surgery: No Hx Breast Surgery: No Hx Breast Biopsy: No Hx Abdominal Surgery: Yes (LT. INGUINAL HERNIA REPAIR (DURING CHILDHOOD).) Hx Appendectomy: No Hx Cholecystectomy: No Hx Genitourinary Surgery: Yes (TORSION OF TESTICLES (DURING 20'S).) Hx Section: No Hx Orthopedic Surgery: No Other Surgical History: tonsillectomy at 12 years old.OSTEOMYELITIS RT. CLAVICLE BONE SHAVING Anesthesia Reaction: No - PPD History Previous Implant?: Yes Documented Results: Negative w/proof Implanted On Prior [facility] Admission?: Yes Date: 09/06/17 Results: 0 mm PPD to be Administered?: No - Reproductive History Patient is a Female of Child Bearing Age (11 -55 yrs old): No (MALE) - Smoking Cessation Smoking history: Current every day smoker Have you smoked in the past 12 months: Yes Aproximately how many cigarettes per day: 10 Cigars Per Day: 0 Hx Chewing Tobacco Use: No Initiated information on smoking cessation: Yes 'Breaking Loose' booklet given: 01/30/18 - Substance & Tx. History Hx Alcohol Use: No Hx Substance Use: Yes Substance Use Type: Cocaine, Heroin Hx Substance Use Treatment: Yes ([facility]) - Substances Abused Heroin Route: Injection Frequency: Daily Amount used: 6 BAGS Age of first use: 41 Date of Last Use: 01/30/18 Cocaine Route: Inhalation Frequency: 1-2 times per week Amount used: 2 BAGS Age of first use: 21 Date of Last Use: 01/29/18 Family Disease History - Family Disease History Family Disease History: Heart Disease: Mother (UTERUS; HTN), CA: Mother, Other: Father (no contact), Brother (DRUG USE.) Admission Physical Exam S - Vital Signs Vital Signs: Vital Signs - 24 hr 01/30/18 18:10 Temperature 97.1 F L Pulse Rate 77 Respiratory 18 Rate Blood Pressure 121/78 - Physical General Appearance: Yes: Moderate Distress, Tremorous, Irritable, Sweating, Anxious HEENTM: Yes: Normal ENT Inspection, Normocephalic, Normal Voice, RENEA Respiratory: Yes: Lungs Clear, Normal Breath Sounds, No Respiratory Distress Neck: Yes: Supple Breast: Yes: Breast Exam Deferred Cardiology: Yes: Regular Rhythm, Regular Rate Abdominal: Yes: Normal Bowel Sounds, Soft Genitourinary: Yes: Within Normal Limits Back: Yes: Normal Inspection Musculoskeletal: Yes: Back pain, Joint swelling, Muscle Pain Extremities: Yes: Tremors Neurological: Yes: Alert, Normal Mood/Affect Integumentary: Yes: Dry Lymphatic: Yes: Within Normal Limits - Diagnostic (1) Anxiety Current Visit: Yes Status: Chronic (2) Depression Current Visit: Yes Status: Chronic Qualifiers: Depression Type: unspecified Qualified Code(s): F32.9 - Major depressive disorder, single episode, unspecified (3) Nicotine dependence Current Visit: Yes Status: Chronic Qualifiers: Nicotine product type: cigarettes Substance use status: in withdrawal Qualified Code(s): F17.213 - Nicotine dependence, cigarettes, with withdrawal (4) Opioid dependence with withdrawal Current Visit: Yes Status: Chronic (5) Chronic low back pain Current Visit: Yes Status: Chronic Qualifiers: Back pain laterality: unspecified Sciatica presence: unspecified whether sciatica present Qualified Code(s): M54.5 - Low back pain; G89.29 - Other chronic pain (6) GERD (gastroesophageal reflux disease) Current Visit: Yes Status: Chronic Qualifiers: Esophagitis presence: esophagitis presence not specified Qualified Code(s) : K21.9 - Gastro-esophageal reflux disease without esophagitis BHS Breath Alcohol Content Breath Alcohol Content: 0 Urine Drug Screen - Results Drug Screen Negative: Yes Urine Drug Screen Results: CORINE-Cocaine, OPI-Opiates, MDMA-Ecstasy
[2018-01-30] MEDS ORDERED: IBUPROFEN 400 MG TABLET (FP) PO PRN (21:08)
[2018-01-30] MEDS ORDERED: MAG HYDROX/AL HYDROX/SIMETH 30 ML UNIT-DOSE CUP PO PRN (21:08)
[2018-01-30] MEDS ORDERED: guaiFENesin/D-METHORPHAN HB 10 ML UNIT-DOSE CUPS PO PRN (21:08)
[2018-01-30] MEDS ORDERED: MENTHOL/PHENOL 1 EACH UD MM PRN (21:08)
[2018-01-30] MEDS ORDERED: ACETAMINOPHEN 325 MG TABLET (FP) PO PRN (21:08)
[2018-01-30] MEDS ORDERED: LOPERAMIDE HCL 2 MG CAPSULE PO PRN (21:08)
[2018-01-30] MEDS ORDERED: NICOTINE POLACRILEX 2 MG GUM BUC PRN (21:08)
[2018-01-30] MEDS ORDERED: MAGNESIUM CITRATE 300 ML BOTTLE PO PRN (21:08)
[2018-01-30] MEDS ORDERED: P-EPHED 60MG/TRIPROLIDI 2.5MG TABLET PO PRN (21:08)
[2018-01-30] MEDS ORDERED: MAGNESIUM HYDROX 2400MG/30ML ORAL SUSPENSION 30 ML CUP PO PRN (21:08)
[2018-01-30] MEDS ORDERED: METHADONE HCL 10 MG TABLET (FOR DETOX USE ONLY) ONE (21:33)
[2018-01-30] MEDS: diazePAM 5 MG TABLET PO PRN (21:35)
[2018-01-30] MEDS: THIAMINE HCL 100 MG TABLET (FP) PO SCH (21:36)
[2018-01-30] MEDS ORDERED: METHADONE HCL 10 MG TABLET (FOR DETOX USE ONLY) PO ONE ×2 (21:45→23:00)
[2018-01-30] MEDS ORDERED: MELATONIN 5 MG TABLETS PO PRN (22:00)
[2018-01-31] MEDS: diazePAM 5 MG TABLET PO PRN ×4 (02:03→19:29)
[2018-01-31 02:17] LABS: URINE APPEARANCE TURBID; URINE BILIRUBIN NEGATIVE (<2.0 mg/dL); URINE COLOR AMBER; URINE GLUCOSE (UA) NEGATIVE (NEGATIVE); URINE KETONE NEGATIVE (NEGATIVE); URINE LEUK ESTERASE NEGATIVE (NEGATIVE); URINE NITRITE NEGATIVE (NEGATIVE)
[2018-01-31 02:38] LABS: URINE PROTEIN 1+ (NEGATIVE)
[2018-01-31 02:41] LABS: URINE BACTERIA RARE /hpf (NONE SEEN); URINE HYALINE CAST 3 /lpf; URINE MUCUS FEW
--- NOTE | 2018-01-31 07:34 | CONSULT ---
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 Substance Abuse History: - Smoking Cessation. Smoking history: Current every day smoker. Have you smoked in the past 12 months: Yes. Aproximately how many cigarettes per day: 10. Cigars Per Day: 0. Hx Chewing Tobacco Use: No. Initiated information on smoking cessation: Yes. 'Breaking Loose' booklet given : 01/30/18. - Substance & Tx. History. Hx Alcohol Use: No. Hx Substance Use: Yes. Substance Use Type: Cocaine, Heroin. Hx Substance Use Treatment: Yes ( [facility]). - Substances Abused. Heroin. Route: Injection. Frequency: Daily. Amount used: 6 BAGS. Age of first use: 41. Date of Last Use: 01/30/18. Cocaine. Route: Inhalation. Frequency: 1-2 times per week. Amount used: 2 BAGS. Age of first use: 21. Date of Last Use: 01/29/18 Medical History: LBP Psychiatric History: Patient reports history of depression and anxiety, reports taking prior to admission: Seroquel 200mg po qhs. Celexa 10mg poqd Physical/Sexual Abuse/Trauma History: Denies Additional Comment: Seroquel 200mg po qhs. Celexa 10mg poqd Mental Status Exam - Mental Status Exam Alert and Oriented to: Person Cognitive Function: Fair Patient Appearance: Well Groomed Mood: Apprehensive Affect: Mood Congruent Patient Behavior: Cooperative Speech Pattern: Appropriate Voice Loudness: Normal Thought Process: Goal Oriented Thought Disorder: Being Controlled Hallucinations: Denies Suicidal Ideation: Denies Homicidal Ideation: Denies Insight/Judgement: Fair Sleep: Difficulty falling asleep Appetite: Weight gain Muscle strength/Tone: Normal Gait/Station: Normal Additional Comments: Seroquel 200mg po qhs. 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 Celexa 10mg poqd
--- NOTE | 2018-01-31 09:47 | PN ---
BHS COWS - Scale Resting Pulse: 1= [place] 81-100 Sweatin= Chills/Flushing Restless Observation: 3= Extraneous Movement Pupil Size: 1= Pupils >than Normal Bone or Joint Aches: 2= Severe Diffuse Aches Runny Nose/ Eye Tearin= Runny Nose/Eyes GI Upset > 30mins: 2= Nausea/Diarrhea Tremor Observation of Outstretched Hands: 2= Slight Tremor Visible Yawning Observation: 1= 1-2x During Session Anxiety or Irritability: 2=Irritable/Anxious Goose Flesh Skin: 0=Smooth Skin COWS Score: 17 S Progress Note (SOAP) Subjective: alert,irritable,pain in the body and joint,tremor,interrupted sleep Objective: 01/31/18 09:44 Vital Signs Temperature 97.3 F L 01/31/18 07:20 Pulse Rate 71 01/31/18 07:20 Respiratory Rate 18 01/31/18 07:20 Blood Pressure 128/68 01/31/18 07:20 O2 Sat by Pulse Oximetry (%) 01/31/18 09:44 ekg nsr,normal eg, qt/qtc 348/381 Laboratory Last Values Urine Color Sita 01/30/18 22:36 Urine Appearance Turbid 01/30/18 22:36 Urine pH 5.0 (5.0-8.0) 01/30/18 22:36 Ur Specific [place] 1.027 (1.001-1.035) 01/30/18 22:36 Urine Protein 1+ (NEGATIVE) H 01/30/18 22:36 Urine Glucose (UA) Negative (NEGATIVE) 01/30/18 22:36 Urine Ketones Negative (NEGATIVE) 01/30/18 22:36 Urine Blood Negative (NEGATIVE) 01/30/18 22:36 Urine Nitrite Negative (NEGATIVE) 01/30/18 22:36 Urine Bilirubin Negative (<2.0 mg/dL) 01/30/18 22:36 Urine Urobilinogen 2.0 mg/dL (0.2-1.0) 01/30/18 22:36 Ur Leukocyte Esterase Negative (NEGATIVE) 01/30/18 22:36 Urine WBC (Auto) 2 /hpf (3-5) 01/30/18 22:36 Urine RBC (Auto) 1 /hpf (0-3) 01/30/18 22:36 Urine Bacteria Rare /hpf (NONE SEEN) 01/30/18 22:36 Hyaline Casts 3 /lpf 01/30/18 22:36 Urine Mucus Few 01/30/18 22:36 Laboratory Last Values Urine Color [place] 01/30/18 22:36 Urine Appearance Turbid 01/30/18 22:36 Urine pH 5.0 (5.0-8.0) 01/30/18 22:36 Ur Specific [place] 1.027 (1.001-1.035) 01/30/18 22:36 Urine Protein 1+ (NEGATIVE) H 01/30/18 22:36 Urine Glucose (UA) Negative (NEGATIVE) 01/30/18 22:36 Urine Ketones Negative (NEGATIVE) 01/30/18 22:36 Urine Blood Negative (NEGATIVE) 01/30/18 22:36 Urine Nitrite Negative (NEGATIVE) 01/30/18 22:36 Urine Bilirubin Negative (<2.0 mg/dL) 01/30/18 22:36 Urine Urobilinogen 2.0 mg/dL (0.2-1.0) 01/30/18 22:36 Ur Leukocyte Esterase Negative (NEGATIVE) 01/30/18 22:36 Urine WBC (Auto) 2 /hpf (3-5) 01/30/18 22:36 Urine RBC (Auto) 1 /hpf (0-3) 01/30/18 22:36 Urine Bacteria Rare /hpf (NONE SEEN) 01/30/18 22:36 Hyaline Casts 3 /lpf 01/30/18 22:36 Urine Mucus Few 01/30/18 22:36 labs pending Assessment: 01/31/18 09:46 withdrawal symptom Plan: continue detox
[2018-01-31] MEDS ORDERED: METHADONE HCL 10 MG TABLET (FOR DETOX USE ONLY) PO ONE (10:00)
[2018-01-31] MEDS: PRENATAL VITAMINS W/ FOLIC ACID TABLET (FP) PO SCH (10:10)
[2018-01-31] MEDS: CITALOPRAM HYDROBROMIDE 10 MG TABLET (FP) PO SCH (10:10)
[2018-01-31] MEDS: NICOTINE 14 MG/24 HOURS TOPICAL PATCH TD SCH (10:12)
[2018-01-31 10:18] LABS: HEMATOCRIT 43.2 % (35.4-49); HEMOGLOBIN 14.8 GM/dL (11.7-16.9); MCH 29.9 pg (25.7-33.7); MCHC 34.3 g/dl (32.0-35.9); MEAN CELL VOLUME 86.9 fl (80-96); MEAN PLT VOLUME 8.1 fl (7.5-11.1); PLATELET COUNT 175 K/MM3 (134-434); RBC 4.97 M/mm3 (4.00-5.60); RDW 14.7 % (11.9-15.9); WHITE BLOOD COUNT 6.3 K/mm3 (4.0-10.0)
[2018-01-31 10:54] LABS: CHLORIDE 101 mmol/L (98-107); POTASSIUM 4.3 mmol/L (3.5-5.1); SODIUM 138 mmol/L (136-145)
[2018-01-31 11:24] LABS: ALBUMIN 3.7 g/dl (3.4-5.0); ALK PHOS 83 U/L (45-117); ANION GAP 10 (8-16); BILIRUBIN,TOTAL 0.8 mg/dL (0.2-1.0); BLOOD UREA NITROGEN 15 mg/dL (7-18); CALCIUM 8.8 mg/dL (8.5-10.1); CO2 27 mmol/L (21-32); CREATININE 1.5 mg/dL (0.7-1.3); GLUCOSE,RANDOM 86 mg/dL (74-106); SGOT/AST 11 U/L (15-37); SGPT/ALT 21 U/L (12-78); TOT PROT 7.1 g/dl (6.4-8.2)
--- NOTE | 2018-01-31 14:26 | EKG ---
Test Reason : Blood Pressure : / mmHG Vent. Rate : 072 BPM Atrial Rate : 072 BPM P-R Int : 176 ms QRS Dur : 082 ms QT Int : 348 ms P-R-T Axes : 068 084 052 degrees QTc Int : 381 ms NORMAL SINUS RHYTHM NORMAL ECG WHEN COMPARED WITH ECG OF 19-DEC-2017 16:25, NO SIGNIFICANT CHANGE WAS FOUND Confirmed by CALI SALOMON MD ([id number]) on 01/31/2018 2:26:05 PM Referred By: Confirmed By:CALI SALOMON MD
[2018-01-31] MEDS: THIAMINE HCL 100 MG TABLET (FP) PO SCH (22:30)
[2018-01-31] MEDS: QUEtiapine FUMARATE 200 MG TABLET PO SCH (22:30)
[2018-02-01] MEDS: diazePAM 5 MG TABLET PO PRN ×4 (04:24→22:09)
--- NOTE | 2018-02-01 09:23 | PN ---
BHS COWS - Scale Resting Pulse: 0= [place] 80 or Below Sweatin= Chills/Flushing Restless Observation: 3= Extraneous Movement Pupil Size: 1= Pupils >than Normal Bone or Joint Aches: 2= Severe Diffuse Aches Runny Nose/ Eye Tearin= Runny Nose/Eyes GI Upset > 30mins: 3= Vomiting/Diarrhea Tremor Observation of Outstretched Hands: 2= Slight Tremor Visible Yawning Observation: 1= 1-2x During Session Anxiety or Irritability: 2=Irritable/Anxious Goose Flesh Skin: 0=Smooth Skin COWS Score: 17 BHS Progress Note (SOAP) Subjective: alert,irritable,anxious,interrupted sleep,tremor,pain in the body and back Objective: 02/01/18 09:21 Vital Signs Temperature 96.5 F L 02/01/18 09:14 Pulse Rate 56 L 02/01/18 09:14 Respiratory Rate 18 02/01/18 09:14 Blood Pressure 109/66 02/01/18 09:14 O2 Sat by Pulse Oximetry (%) 02/01/18 09:22 Laboratory Last Values WBC 6.3 K/mm3 (4.0-10.0) 01/31/18 07:30 RBC 4.97 M/mm3 (4.00-5.60) 01/31/18 07:30 Hgb 14.8 GM/dL (11.7-16.9) 01/31/18 07:30 Hct 43.2 % (35.4-49) 01/31/18 07:30 MCV 86.9 fl (80-96) 01/31/18 07:30 MCH 29.9 pg (25.7-33.7) 01/31/18 07:30 MCHC 34.3 g/dl (32.0-35.9) 01/31/18 07:30 RDW 14.7 % (11.9-15.9) 01/31/18 07:30 Plt Count 175 K/MM3 (134-434) 01/31/18 07:30 MPV 8.1 fl (7.5-11.1) D 01/31/18 07:30 Sodium 138 mmol/L (136-145) 01/31/18 07:30 Potassium 4.3 mmol/L (3.5-5.1) 01/31/18 07:30 Chloride 101 mmol/L (98-107) 01/31/18 07:30 Carbon Dioxide 27 mmol/L (21-32) 01/31/18 07:30 Anion Gap 10 (8-16) 01/31/18 07:30 BUN 15 mg/dL (7-18) 01/31/18 07:30 Creatinine 1.5 mg/dL (0.7-1.3) H 01/31/18 07:30 Creat Clearance w eGFR 49.54 (>60) 01/31/18 07:30 Random Glucose 86 mg/dL (74-106) D 01/31/18 07:30 Calcium 8.8 mg/dL (8.5-10.1) 01/31/18 07:30 Total Bilirubin 0.8 mg/dL (0.2-1.0) 01/31/18 07:30 AST 11 U/L (15-37) L D 01/31/18 07:30 ALT 21 U/L (12-78) 01/31/18 07:30 Alkaline Phosphatase 83 U/L (45-117) 01/31/18 07:30 Total Protein 7.1 g/dl (6.4-8.2) 01/31/18 07:30 Albumin 3.7 g/dl (3.4-5.0) 01/31/18 07:30 Urine Color Sita 01/30/18 22:36 Urine Appearance Turbid 01/30/18 22:36 Urine pH 5.0 (5.0-8.0) 01/30/18 22:36 Ur Specific [place] 1.027 (1.001-1.035) 01/30/18 22:36 Urine Protein 1+ (NEGATIVE) H 01/30/18 22:36 Urine Glucose (UA) Negative (NEGATIVE) 01/30/18 22:36 Urine Ketones Negative (NEGATIVE) 01/30/18 22:36 Urine Blood Negative (NEGATIVE) 01/30/18 22:36 Urine Nitrite Negative (NEGATIVE) 01/30/18 22:36 Urine Bilirubin Negative (<2.0 mg/dL) 01/30/18 22:36 Urine Urobilinogen 2.0 mg/dL (0.2-1.0) 01/30/18 22:36 Ur Leukocyte Esterase Negative (NEGATIVE) 01/30/18 22:36 Urine WBC (Auto) 2 /hpf (3-5) 01/30/18 22:36 Urine RBC (Auto) 1 /hpf (0-3) 01/30/18 22:36 Urine Bacteria Rare /hpf (NONE SEEN) 01/30/18 22:36 Hyaline Casts 3 /lpf 01/30/18 22:36 Urine Mucus Few 01/30/18 22:36 RPR Titer Nonreactive (NONREACTIVE) 01/31/18 07:30 Assessment: 02/01/18 09:22 withdrawal symptom Plan: continue detox
[2018-02-01] MEDS ORDERED: METHADONE HCL 5 MG TABLET (FOR DETOX USE ONLY) PO ONE (10:00)
[2018-02-01] MEDS: CITALOPRAM HYDROBROMIDE 10 MG TABLET (FP) PO SCH (10:10)
[2018-02-01] MEDS: PRENATAL VITAMINS W/ FOLIC ACID TABLET (FP) PO SCH (10:10)
[2018-02-01] MEDS: NICOTINE 14 MG/24 HOURS TOPICAL PATCH TD SCH (10:11)
[2018-02-01] MEDS: RANITIDINE HCL 150 MG TABLET (FP) PO SCH (13:49)
[2018-02-01] MEDS: THIAMINE HCL 100 MG TABLET (FP) PO SCH (22:09)
[2018-02-01] MEDS: hydrOXYzine PAMOATE 50 MG CAPSULE (FP) PO PRN (22:09)
[2018-02-01] MEDS: QUEtiapine FUMARATE 200 MG TABLET PO SCH (22:09)
[2018-02-02] MEDS: diazePAM 5 MG TABLET PO PRN ×3 (07:00→18:30)
[2018-02-02] MEDS ORDERED: METHADONE HCL 5 MG TABLET (FOR DETOX USE ONLY) PO ONE (10:00)
[2018-02-02] MEDS: RANITIDINE HCL 150 MG TABLET (FP) PO SCH (10:16)
[2018-02-02] MEDS: PRENATAL VITAMINS W/ FOLIC ACID TABLET (FP) PO SCH (10:16)
[2018-02-02] MEDS: NICOTINE 14 MG/24 HOURS TOPICAL PATCH TD SCH (10:16)
[2018-02-02] MEDS: CITALOPRAM HYDROBROMIDE 10 MG TABLET (FP) PO SCH (10:16)
--- NOTE | 2018-02-02 12:05 | PN ---
BHS Progress Note (SOAP) Subjective: alert,irritable,anxious,interrupted sleep,pain in the body Objective: 02/02/18 12:04 Vital Signs Temperature 97.9 F 02/02/18 11:21 Pulse Rate 64 02/02/18 11:21 Respiratory Rate 18 02/02/18 11:21 Blood Pressure 111/71 02/02/18 11:21 O2 Sat by Pulse Oximetry (%) Assessment: 02/02/18 12:04 withdrawal symptom Plan: continue detox
[2018-02-02] MEDS: THIAMINE HCL 100 MG TABLET (FP) PO SCH (22:13)
[2018-02-02] MEDS: QUEtiapine FUMARATE 200 MG TABLET PO SCH (22:13)
--- NOTE | 2018-02-03 09:50 | PN ---
BHS Progress Note (SOAP) Subjective: feeling better no tremor less sweat sleep better at night no gi distress Objective: 02/03/18 09:48 Vital Signs Temperature 97.3 F L 02/03/18 09:22 Pulse Rate 62 02/03/18 09:22 Respiratory Rate 18 02/03/18 09:22 Blood Pressure 99/62 02/03/18 09:22 O2 Sat by Pulse Oximetry (%) Laboratory Last Values WBC 6.3 K/mm3 (4.0-10.0) 01/31/18 07:30 RBC 4.97 M/mm3 (4.00-5.60) 01/31/18 07:30 Hgb 14.8 GM/dL (11.7-16.9) 01/31/18 07:30 Hct 43.2 % (35.4-49) 01/31/18 07:30 MCV 86.9 fl (80-96) 01/31/18 07:30 MCH 29.9 pg (25.7-33.7) 01/31/18 07:30 MCHC 34.3 g/dl (32.0-35.9) 01/31/18 07:30 RDW 14.7 % (11.9-15.9) 01/31/18 07:30 Plt Count 175 K/MM3 (134-434) 01/31/18 07:30 MPV 8.1 fl (7.5-11.1) D 01/31/18 07:30 Sodium 138 mmol/L (136-145) 01/31/18 07:30 Potassium 4.3 mmol/L (3.5-5.1) 01/31/18 07:30 Chloride 101 mmol/L (98-107) 01/31/18 07:30 Carbon Dioxide 27 mmol/L (21-32) 01/31/18 07:30 Anion Gap 10 (8-16) 01/31/18 07:30 BUN 15 mg/dL (7-18) 01/31/18 07:30 Creatinine 1.5 mg/dL (0.7-1.3) H 01/31/18 07:30 Creat Clearance w eGFR 49.54 (>60) 01/31/18 07:30 Random Glucose 86 mg/dL (74-106) D 01/31/18 07:30 Calcium 8.8 mg/dL (8.5-10.1) 01/31/18 07:30 Total Bilirubin 0.8 mg/dL (0.2-1.0) 01/31/18 07:30 AST 11 U/L (15-37) L D 01/31/18 07:30 ALT 21 U/L (12-78) 01/31/18 07:30 Alkaline Phosphatase 83 U/L (45-117) 01/31/18 07:30 Total Protein 7.1 g/dl (6.4-8.2) 01/31/18 07:30 Albumin 3.7 g/dl (3.4-5.0) 01/31/18 07:30 Urine Color Sita 01/30/18 22:36 Urine Appearance Turbid 01/30/18 22:36 Urine pH 5.0 (5.0-8.0) 01/30/18 22:36 Ur Specific [place] 1.027 (1.001-1.035) 01/30/18 22:36 Urine Protein 1+ (NEGATIVE) H 01/30/18 22:36 Urine Glucose (UA) Negative (NEGATIVE) 01/30/18 22:36 Urine Ketones Negative (NEGATIVE) 01/30/18 22:36 Urine Blood Negative (NEGATIVE) 01/30/18 22:36 Urine Nitrite Negative (NEGATIVE) 01/30/18 22:36 Urine Bilirubin Negative (<2.0 mg/dL) 01/30/18 22:36 Urine Urobilinogen 2.0 mg/dL (0.2-1.0) 01/30/18 22:36 Ur Leukocyte Esterase Negative (NEGATIVE) 01/30/18 22:36 Urine WBC (Auto) 2 /hpf (3-5) 01/30/18 22:36 Urine RBC (Auto) 1 /hpf (0-3) 01/30/18 22:36 Urine Bacteria Rare /hpf (NONE SEEN) 01/30/18 22:36 Hyaline Casts 3 /lpf 01/30/18 22:36 Urine Mucus Few 01/30/18 22:36 RPR Titer Nonreactive (NONREACTIVE) 01/31/18 07:30 lab noted discussed opiate related renal diseases Assessment: 02/03/18 09:49 mild opiate withdrawal sx Plan: medically supervised opiate detox
[2018-02-03] MEDS ORDERED: METHADONE HCL 10 MG TABLET (FOR DETOX USE ONLY) PO ONE (10:00)
[2018-02-03] MEDS: RANITIDINE HCL 150 MG TABLET (FP) PO SCH (10:07)
[2018-02-03] MEDS: PRENATAL VITAMINS W/ FOLIC ACID TABLET (FP) PO SCH (10:07)
[2018-02-03] MEDS: NICOTINE 14 MG/24 HOURS TOPICAL PATCH TD SCH (10:07)
[2018-02-03] MEDS: CITALOPRAM HYDROBROMIDE 10 MG TABLET (FP) PO SCH (10:07)
[2018-02-03] MEDS ORDERED: cloNIDine HCL 0.1 MG TABLET PO ONE (18:02)
--- NOTE | 2018-02-03 18:04 | PN ---
S Progress Note Note: withdrawal symptom Vital Signs Temperature 97.9 F 02/03/18 13:44 Pulse Rate 70 02/03/18 13:44 Respiratory Rate 20 02/03/18 13:44 Blood Pressure 123/81 02/03/18 13:44 O2 Sat by Pulse Oximetry (%) clonidine 0.1 mg po now continue detox,monitoring
[2018-02-03] MEDS: hydrOXYzine PAMOATE 50 MG CAPSULE (FP) PO PRN ×2 (18:16→22:13)
[2018-02-03] MEDS: THIAMINE HCL 100 MG TABLET (FP) PO SCH (22:13)
[2018-02-03] MEDS: QUEtiapine FUMARATE 200 MG TABLET PO SCH (22:13)
[2018-02-03 22:44] VITALS: BP 109/73; PULSE 65; TEMP 97
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
[2018-02-04] MEDS ORDERED: METHADONE HCL 5 MG TABLET (FOR DETOX USE ONLY) PO ONE (06:00)
== END 2018-02-03 22:30 | disposition left against medical advice (07) | DRG 773 ==
LOC: YASAS 15:33 → Y6N 19:10
PROVIDERS: ADMIT Surgery; ATTEND Surgery
PROC: HZ2ZZZZ Detoxification Services for Substance Abuse Treatment (ICD-10-PCS; principal; 2018-01-30)
DX: F11.23 Opioid dependence with withdrawal (principal); F14.20 Cocaine dependence, uncomplicated; F17.213 Nicotine dependence, cigarettes, with withdrawal; F32.9 Major depressive disorder, single episode, unspecified; F41.9 Anxiety disorder, unspecified; B18.2 Chronic viral hepatitis C; K21.9 Gastro-esophageal reflux disease without esophagitis; M54.5 Low back pain; G89.29 Other chronic pain; F91.9 Conduct disorder, unspecified; Z91.19 Patient's noncompliance with other medical treatment and regimen; Z88.0 Allergy status to penicillin
CPT/HCPCS: 36415; 80053; 81003; 81015; 85027; 86593; 93005; 93010; J0735

== ENCOUNTER 2018-04-05 11:01 | Inpatient (IN) | payer OTHER ==
[2018-04-05 12:09] VITALS: BMI 29.5
--- NOTE | 2018-04-05 17:53 | HP ---
COWS - Scale Resting Pulse: 0= [place] 80 or Below Sweatin= Chills/Flushing Restless Observation: 1= Difficult to Sit Still Pupil Size: 1= Pupils >than Normal Bone or Joint Aches: 2= Severe Diffuse Aches Runny Nose/ Eye Tearin= Runny Nose/Eyes GI Upset > 30mins: 1= Stomach Cramp Tremor Observation: 2= Slight Tremor Visible Yawning Observation: 1= 1-2x During Session Anxiety or Irritability: 1=Feels Anxious/Irritable Goose Flesh Skin: 3=Piloerection COWS Score: 15 Admission ROS S - HPI Chief Complaint: WITHDRAWAL SYMPTOMS Allergies/Adverse Reactions: Allergies Allergy/AdvReac Type Severity Reaction Status Date / Time penicillin G Allergy Severe Hives Verified 04/05/18 15:17 History of Present Illness: 53 Y.O. MAN WITH AN EXTENSIVE HISTORY OF OPIOID DEPENDENCE IS HERE FOR DETOX. HE HAS HAD MULTIPLE ADMISSIONS HERE WITH THE LAST BEING ON 01/30/18-02/03/18. HE REPORTS LONGEST OF ILLICIT DRUG ABSTINENCE HAS BEEN 7 YEAR. Exam Limitations: No Limitations - Ebola screening Have you traveled outside of the country in the last 21 days: No Have you had contact with anyone from an Ebola affected area: No Have you been sick,other than usual withdrawal symptoms: No - Review of Systems Constitutional: Chills, Diaphoresis, Loss of Appetite, Unexplained wgt Loss EENT: reports: Eye Pain, Nose Congestion Respiratory: reports: No Symptoms reported Cardiac: reports: No Symptoms Reported GI: reports: No Symptoms Reported : reports: No Symptoms Reported Musculoskeletal: reports: Back Pain Integumentary: reports: No Symptoms Reported Neuro: reports: Headache, Tremors Endocrine: reports: No Symptoms Reported Hematology: reports: No Symptoms Reported Psychiatric: reports: Orientated x3, Depressed Other Systems: Reviewed and Negative Patient History - Patient Medical History Hx Anemia: No Hx Asthma: No Hx Chronic Obstructive Pulmonary Disease (COPD): No Hx Cancer: No Hx Cardiac Disorders: No Hx Congestive Heart Failure: No Hx Hypertension: No Hx Hypercholesterolemia: No Hx Pacemaker: No HX Cerebrovascular Accident: No Hx Seizures: No Hx Dementia: No Hx Diabetes: No Hx Gastrointestinal Disorders: Yes (GERD - Ranitidine) Hx Liver Disease: No Hx Genitourinary Disorders: No Hx Sexually Transmitted Disorders: No Hx Renal Disease (ESRD): No Hx Thyroid Disease: No Hx Human Immunodeficiency Virus (HIV): No ( NEGATIVE 2017) Hx Hepatitis C: Yes (Completed Treatment: 03/2017.) Hx Depression: Yes (SEROQUEL) Hx Suicide Attempt: No (Denies suicide attempt and suicidal ideation at this time) Hx Bipolar Disorder: No Hx Schizophrenia: No - Patient Surgical History Past Surgical History: Yes Hx Neurologic Surgery: No Hx Cataract Extraction: No Hx Cardiac Surgery: No Hx Lung Surgery: No Hx Breast Surgery: No Hx Breast Biopsy: No Hx Abdominal Surgery: Yes (LT. INGUINAL HERNIA REPAIR (DURING CHILDHOOD).) Hx Appendectomy: No Hx Cholecystectomy: No Hx Genitourinary Surgery: Yes (TORSION OF TESTICLES (DURING 20'S).) Hx Section: No Hx Orthopedic Surgery: No Other Surgical History: tonsillectomy at 12 years old.OSTEOMYELITIS RT. CLAVICLE BONE SHAVING Anesthesia Reaction: No - PPD History Previous Implant?: Yes Documented Results: Negative w/proof Implanted On Prior [facility] Admission?: Yes Date: 09/06/17 Results: 0 mm PPD to be Administered?: No - Reproductive History Patient is a Female of Child Bearing Age (11 -55 yrs old): No - Smoking Cessation Smoking history: Current every day smoker Have you smoked in the past 12 months: Yes Aproximately how many cigarettes per day: 10 Cigars Per Day: 0 Hx Chewing Tobacco Use: No Initiated information on smoking cessation: Yes 'Breaking Loose' booklet given: 04/05/18 - Substance & Tx. History Hx Alcohol Use: No Hx Substance Use: Yes Substance Use Type: Cocaine, Heroin Hx Substance Use Treatment: Yes (DETOX: 01/2018) - Substances Abused Cocaine Route: Oral Frequency: 1-2 times per week Amount used: $10 Age of first use: 21 Date of Last Use: 04/05/18 Heroin Route: SNIFF Frequency: Daily Amount used: 10 BAGS Age of first use: 40 Date of Last Use: 04/05/18 Family Disease History - Family Disease History Family Disease History: Heart Disease: Mother (UTERUS; HTN), CA: Mother, Other: Father (no contact), Brother (DRUG USE.) Admission Physical Exam BHS - Vital Signs Vital Signs: Vital Signs - 24 hr 04/05/18 12:04 Temperature 98.4 F Pulse Rate 74 Respiratory 19 Rate Blood Pressure 128/73 - Physical General Appearance: Yes: Tremorous, Sweating, Anxious HEENTM: Yes: Hearing grossly Normal, Normal ENT Inspection, Normocephalic Respiratory: Yes: Chest Non-Tender, Lungs Clear, Normal Breath Sounds, No Respiratory Distress, No Accessory Muscle Use Neck: Yes: No masses,lesions,Nodules, Trachea in good position Breast: Yes: Breast Exam Deferred, Within Normal Limits Cardiology: Yes: Regular Rhythm, Regular Rate Abdominal: Yes: Normal Bowel Sounds, Non Tender, Flat Genitourinary: Yes: Other Back: Yes: Normal Inspection Musculoskeletal: Yes: Back pain Extremities: Yes: Normal Inspection, Normal Range of Motion, Non-Tender Neurological: Yes: Fully Oriented, Alert, Normal Mood/Affect, Normal Response Integumentary: Yes: Normal Color, Dry, Warm Lymphatic: Yes: Within Normal Limits - Diagnostic (1) Cocaine dependence Current Visit: Yes Status: Chronic Qualifiers: Substance use status: with cocaine-induced anxiety disorder Qualified Code( s): 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 (2) Chronic low back pain Current Visit: Yes Status: Chronic Qualifiers: Back pain laterality: unspecified Sciatica presence: unspecified whether sciatica present Qualified Code(s): M54.5 - Low back pain; G89.29 - Other chronic pain (3) GERD (gastroesophageal reflux disease) Current Visit: Yes Status: Chronic Qualifiers: Esophagitis presence: esophagitis presence not specified Qualified Code(s) : K21.9 - Gastro-esophageal reflux disease without esophagitis (4) Nicotine dependence Current Visit: Yes Status: Chronic Qualifiers: Nicotine product type: cigarettes Substance use status: in withdrawal Qualified Code(s): F17.213 - Nicotine dependence, cigarettes, with withdrawal (5) Opioid dependence with withdrawal Current Visit: Yes Status: Chronic (6) Hepatitis C Current Visit: No Status: Resolved Qualifiers: Viral hepatitis chronicity: chronic Hepatic coma status: without hepatic coma Qualified Code(s): B18.2 - Chronic viral hepatitis C Cleared for Admission S - Detox or Rehab [facility] Level of Care: Medically Managed Detox Regimen/Protocol: Methadone [facility] Breath Alcohol Content Breath Alcohol Content: 0
[2018-04-05] MEDS ORDERED: ACETAMINOPHEN 325 MG TABLET (FP) PO PRN (17:55)
[2018-04-05] MEDS ORDERED: MENTHOL/PHENOL 1 EACH UD MM PRN (17:55)
[2018-04-05] MEDS ORDERED: P-EPHED 60MG/TRIPROLIDI 2.5MG TABLET PO PRN (17:55)
[2018-04-05] MEDS ORDERED: LOPERAMIDE HCL 2 MG CAPSULE PO PRN (17:55)
[2018-04-05] MEDS ORDERED: MAGNESIUM HYDROX 2400MG/30ML ORAL SUSPENSION 30 ML CUP PO PRN (17:55)
[2018-04-05] MEDS ORDERED: MAG HYDROX/AL HYDROX/SIMETH 30 ML UNIT-DOSE CUP PO PRN (17:55)
[2018-04-05] MEDS ORDERED: IBUPROFEN 400 MG TABLET (FP) PO PRN (17:55)
[2018-04-05] MEDS ORDERED: MAGNESIUM CITRATE 300 ML BOTTLE PO PRN (17:55)
[2018-04-05] MEDS ORDERED: guaiFENesin/D-METHORPHAN HB 10 ML UNIT-DOSE CUPS PO PRN (17:55)
[2018-04-05] MEDS ORDERED: METHADONE HCL 10 MG TABLET (FOR DETOX USE ONLY) PO ONE ×2 (18:15→23:00)
[2018-04-05] MEDS: diazePAM 5 MG TABLET PO PRN (21:48)
[2018-04-05] MEDS: THIAMINE HCL 100 MG TABLET (FP) PO SCH (21:49)
[2018-04-05] MEDS ORDERED: MELATONIN 5 MG TABLETS PO PRN (22:00)
[2018-04-06] MEDS: diazePAM 5 MG TABLET PO PRN ×3 (09:37→19:28)
[2018-04-06] MEDS ORDERED: METHADONE HCL 10 MG TABLET (FOR DETOX USE ONLY) PO ONE (10:00)
[2018-04-06] MEDS ORDERED: ONDANSETRON *ODT* 4 MG TABLET SL PRN (10:31)
--- NOTE | 2018-04-06 10:33 | PN ---
BHS COWS - Scale Resting Pulse: 0= [place] 80 or Below Sweatin= Chills/Flushing Restless Observation: 3= Extraneous Movement Pupil Size: 0= Normal to Room Light Bone or Joint Aches: 1= Mild Discomfort Runny Nose/ Eye Tearin= None GI Upset > 30mins: 3= Vomiting/Diarrhea Tremor Observation of Outstretched Hands: 1= Tremor [place], Not Seen Yawning Observation: 1= 1-2x During Session Anxiety or Irritability: 2=Irritable/Anxious Goose Flesh Skin: 0=Smooth Skin COWS Score: 12 BHS Progress Note (SOAP) Subjective: C/O ANXIETY,IRRITABILITY,SWEATS,NAUSEA/VOMITING,INTERMITTENT SLEEP. Objective: 04/06/18 10:32 Vital Signs 04/06/18 04/06/18 04/06/18 03:30 06:00 06:30 Temperature 97.6 F Pulse Rate 51 L Respiratory 18 18 18 Rate Blood Pressure 126/84 04/06/18 09:13 Temperature 97.9 F Pulse Rate 72 Respiratory 18 Rate Blood Pressure 117/87 LABS PENDING Assessment: 04/06/18 10:32 WITHDRAWAL SX Plan: CONTINUE DETOX
[2018-04-06] MEDS: NICOTINE 14 MG/24 HOURS TOPICAL PATCH TD SCH (10:36)
[2018-04-06] MEDS: RANITIDINE HCL 150 MG TABLET (FP) PO SCH (10:36)
[2018-04-06] MEDS: PRENATAL VITAMINS W/ FOLIC ACID TABLET (FP) PO SCH (10:36)
[2018-04-06 10:48] LABS: HEMATOCRIT 44.5 % (35.4-49); HEMOGLOBIN 14.8 GM/dL (11.7-16.9); MCH 28.6 pg (25.7-33.7); MCHC 33.3 g/dl (32.0-35.9); MEAN PLT VOLUME 8.3 fl (7.5-11.1); PLATELET COUNT 200 K/MM3 (134-434); RBC 5.18 M/mm3 (4.00-5.60); RDW 14.2 % (11.9-15.9); WHITE BLOOD COUNT 6.4 K/mm3 (4.0-10.0)
[2018-04-06 10:55] LABS: URINE APPEARANCE TURBID; URINE BILIRUBIN NEGATIVE (<2.0 mg/dL); URINE GLUCOSE (UA) NEGATIVE (NEGATIVE); URINE KETONE NEGATIVE (NEGATIVE); URINE LEUK ESTERASE NEGATIVE (NEGATIVE); URINE NITRITE NEGATIVE (NEGATIVE); URINE PROTEIN NEGATIVE (NEGATIVE); URINE UROBILINOGEN NEGATIVE mg/dL (0.2-1.0)
[2018-04-06 11:10] LABS: URINE COLOR YELLOW
[2018-04-06 11:17] LABS: ALBUMIN 3.5 g/dl (3.4-5.0); ALK PHOS 77 U/L (45-117); ANION GAP 8 MMOL/L (8-16); BILIRUBIN,TOTAL 0.5 mg/dL (0.2-1); BLOOD UREA NITROGEN 15 mg/dL (7-18); CALCIUM 9.4 mg/dL (8.5-10.1); CHLORIDE 106 mmol/L (98-107); CO2 28 mmol/L (21-32); CREATININE 1.2 mg/dL (0.55-1.3); GLUCOSE,RANDOM 91 mg/dL (74-106); POTASSIUM 4.6 mmol/L (3.5-5.1); SGOT/AST 22 U/L (15-37); SGPT/ALT 37 U/L (13-61); SODIUM 142 mmol/L (136-145)
--- NOTE | 2018-04-06 11:42 | CONSULT ---
[facility] Psychiatric Consult - Data Date of interview: 04/06/18 Admission source: [facility] Identifying data: Another admission to [facility] for this 53 y/o male self-referred for detoxification treatment (heroin,cocaine dependence).Admitted to [address] [place] [address].Patient is single without children,domiciled,unemployed and supported by relatives. Substance Abuse History: Confirmed by patient in this interview.Smoking history : Current every day smoker. Have you smoked in the past 12 months: Yes. Aproximately how many cigarettes per day: 10. Cigars Per Day: 0. Hx Chewing Tobacco Use: No. Initiated information on smoking cessation: Yes. 'Breaking Loose' booklet given: 04/05/18. - Substance & Tx. History. Hx Alcohol Use: No. Hx Substance Use: Yes. Substance Use Type: Cocaine, Heroin. Hx Substance Use Treatment: Yes (DETOX: 01/2018). - Substances Abused. Cocaine. Route: Oral. Frequency: 1-2 times per week. Amount used: $10. Age of first use: 21. Date of Last Use: 04/05/18. Heroin. Route: SNIFF. Frequency: Daily. Amount used: 10 BAGS. Age of first use: 40. Date of Last Use: 04/05/18 Medical History: Hepatitis C and GERD.Noted a distant history of tonsillectomy, osteomyelitis of right shoulder, left inguinal herniorraphy and torsion of testicles (in 20's). Psychiatric History: No history of psychiatric hospitalizations.Diagnosed with MDD and Anxiety Disorder (2013).Patient is still prescribed celexa and seroquel.No history of formal psychiatric OPD care.Mr Osei relies on his primary care physician for medications refills.Denies history of uicide attempts. Physical/Sexual Abuse/Trauma History: Patient denies. Additional Comment: No toxicology available. Mental Status Exam - Mental Status Exam Alert and Oriented to: Time, Place, Person Cognitive Function: Good Patient Appearance: Well Groomed (tattoos on both arms + forearms) Mood: Withdrawn, Anxious, Apprehensive Affect: Mood Congruent Patient Behavior: Fatigued, Cooperative Speech Pattern: Clear Voice Loudness: Normal Thought Process: Intact, Goal Oriented Thought Disorder: Not Present Hallucinations: Denies Suicidal Ideation: Denies Homicidal Ideation: Denies Insight/Judgement: Poor Sleep: Poorly, Difficulty falling asleep Appetite: Good Muscle strength/Tone: Normal Gait/Station: Normal Psychiatric Findings - Problem List ([place] 1, 2,3) (1) Opioid dependence with withdrawal Current Visit: Yes Status: Acute (2) Cocaine dependence Current Visit: Yes Status: Acute Qualifiers: Substance use status: uncomplicated Qualified Code(s): F14.20 - Cocaine dependence, uncomplicated (3) Nicotine dependence Current Visit: Yes Status: Acute Qualifiers: Nicotine product type: cigarettes Substance use status: in withdrawal Qualified Code(s): F17.213 - Nicotine dependence, cigarettes, with withdrawal (4) Substance induced mood disorder Current Visit: Yes Status: Acute (5) Insomnia Current Visit: Yes Status: Acute - Initial Treatment Plan Initial Treatment Plan: Psychoeducation.Sleep hygiene.Detoxification in progress.Medications reconciled : seroquel 200 mg po hs + celexa 10 mg po daily.Side effects/benefits of both drugs are discussed with the patient.Mr Osei agrees to this plan of care.Observation.
[2018-04-06] MEDS: CITALOPRAM HYDROBROMIDE 10 MG TABLET (FP) PO SCH (12:57)
--- NOTE | 2018-04-06 15:41 | EKG ---
Test Reason : Blood Pressure : / mmHG Vent. Rate : 066 BPM Atrial Rate : 066 BPM P-R Int : 136 ms QRS Dur : 088 ms QT Int : 376 ms P-R-T Axes : 056 081 052 degrees QTc Int : 394 ms NORMAL SINUS RHYTHM NORMAL ECG WHEN COMPARED WITH ECG OF 30-JAN-2018 21:21, NO SIGNIFICANT CHANGE WAS FOUND Confirmed by MD Hernandez Daniel ([id number]) on 04/06/2018 3:41:18 PM Referred By: Confirmed By:Riccardo Hernandez MD
[2018-04-06] MEDS: THIAMINE HCL 100 MG TABLET (FP) PO SCH (22:18)
[2018-04-06] MEDS: QUEtiapine FUMARATE 200 MG TABLET PO SCH (22:19)
[2018-04-07] MEDS: diazePAM 5 MG TABLET PO PRN ×4 (02:05→20:52)
[2018-04-07] MEDS ORDERED: METHADONE HCL 5 MG TABLET (FOR DETOX USE ONLY) PO ONE (10:00)
[2018-04-07] MEDS: CITALOPRAM HYDROBROMIDE 10 MG TABLET (FP) PO SCH (10:16)
[2018-04-07] MEDS: PRENATAL VITAMINS W/ FOLIC ACID TABLET (FP) PO SCH (10:16)
[2018-04-07] MEDS: NICOTINE 14 MG/24 HOURS TOPICAL PATCH TD SCH (10:16)
[2018-04-07] MEDS: RANITIDINE HCL 150 MG TABLET (FP) PO SCH (10:16)
[2018-04-07] MEDS: hydrOXYzine PAMOATE 50 MG CAPSULE (FP) PO PRN (10:19)
--- NOTE | 2018-04-07 16:19 | PN ---
BHS COWS - Scale Resting Pulse: 0= [place] 80 or Below Sweatin= Chills/Flushing Restless Observation: 1= Difficult to Sit Still Pupil Size: 1= Pupils >than Normal Bone or Joint Aches: 1= Mild Discomfort Runny Nose/ Eye Tearin= Nasal Congestion GI Upset > 30mins: 2= Nausea/Diarrhea Tremor Observation of Outstretched Hands: 2= Slight Tremor Visible Yawning Observation: 1= 1-2x During Session Anxiety or Irritability: 1=Feels Anxious/Irritable Goose Flesh Skin: 0=Smooth Skin COWS Score: 11 BHS Progress Note (SOAP) Subjective: joints paint body aches trouble sleep at night Objective: 04/07/18 16:20 Vital Signs Temperature 96.4 F L 04/07/18 15:05 Pulse Rate 69 04/07/18 15:05 Respiratory Rate 18 04/07/18 15:05 Blood Pressure 123/61 04/07/18 15:05 O2 Sat by Pulse Oximetry (%) Laboratory Last Values WBC 6.4 K/mm3 (4.0-10.0) 04/06/18 07:50 RBC 5.18 M/mm3 (4.00-5.60) 04/06/18 07:50 Hgb 14.8 GM/dL (11.7-16.9) 04/06/18 07:50 Hct 44.5 % (35.4-49) 04/06/18 07:50 MCV 86.0 fl (80-96) 04/06/18 07:50 MCH 28.6 pg (25.7-33.7) 04/06/18 07:50 MCHC 33.3 g/dl (32.0-35.9) 04/06/18 07:50 RDW 14.2 % (11.9-15.9) 04/06/18 07:50 Plt Count 200 K/MM3 (134-434) 04/06/18 07:50 MPV 8.3 fl (7.5-11.1) 04/06/18 07:50 Sodium 142 mmol/L (136-145) 04/06/18 07:50 Potassium 4.6 mmol/L (3.5-5.1) 04/06/18 07:50 Chloride 106 mmol/L (98-107) 04/06/18 07:50 Carbon Dioxide 28 mmol/L (21-32) 04/06/18 07:50 Anion Gap 8 MMOL/L (8-16) 04/06/18 07:50 BUN 15 mg/dL (7-18) 04/06/18 07:50 Creatinine 1.2 mg/dL (0.55-1.3) 04/06/18 07:50 Creat Clearance w eGFR > 60 (>60) 04/06/18 07:50 Random Glucose 91 mg/dL (74-106) 04/06/18 07:50 Calcium 9.4 mg/dL (8.5-10.1) 04/06/18 07:50 Total Bilirubin 0.5 mg/dL (0.2-1) 04/06/18 07:50 AST 22 U/L (15-37) 04/06/18 07:50 ALT 37 U/L (13-61) 04/06/18 07:50 Alkaline Phosphatase 77 U/L (45-117) 04/06/18 07:50 Total Protein 7.0 g/dl (6.4-8.2) 04/06/18 07:50 Albumin 3.5 g/dl (3.4-5.0) 04/06/18 07:50 Urine Color Yellow 04/06/18 09:00 Urine Appearance Turbid 04/06/18 09:00 Urine pH 5.0 (5.0-8.0) 04/06/18 09:00 Ur Specific [place] 1.018 (1.001-1.035) 04/06/18 09:00 Urine Protein Negative (NEGATIVE) 04/06/18 09:00 Urine Glucose (UA) Negative (NEGATIVE) 04/06/18 09:00 Urine Ketones Negative (NEGATIVE) 04/06/18 09:00 Urine Blood Negative (NEGATIVE) 04/06/18 09:00 Urine Nitrite Negative (NEGATIVE) 04/06/18 09:00 Urine Bilirubin Negative (<2.0 mg/dL) 04/06/18 09:00 Urine Urobilinogen Negative mg/dL (0.2-1.0) 04/06/18 09:00 Ur Leukocyte Esterase Negative (NEGATIVE) 04/06/18 09:00 RPR Titer Nonreactive (NONREACTIVE) 04/06/18 07:50 lab noted Assessment: 04/07/18 16:20 withdrawal sx Plan: continue detox
[2018-04-07] MEDS: THIAMINE HCL 100 MG TABLET (FP) PO SCH (22:19)
[2018-04-07] MEDS: QUEtiapine FUMARATE 200 MG TABLET PO SCH (22:19)
[2018-04-08] MEDS: diazePAM 5 MG TABLET PO PRN ×3 (08:39→17:47)
[2018-04-08] MEDS ORDERED: METHADONE HCL 5 MG TABLET (FOR DETOX USE ONLY) PO ONE (10:00)
[2018-04-08] MEDS: PRENATAL VITAMINS W/ FOLIC ACID TABLET (FP) PO SCH (10:07)
[2018-04-08] MEDS: NICOTINE 14 MG/24 HOURS TOPICAL PATCH TD SCH (10:07)
[2018-04-08] MEDS: RANITIDINE HCL 150 MG TABLET (FP) PO SCH (10:07)
[2018-04-08] MEDS: CITALOPRAM HYDROBROMIDE 10 MG TABLET (FP) PO SCH (10:07)
[2018-04-08] MEDS ORDERED: COLLOIDAL OATMEAL 1 BAR EACH TP PRN (11:37)
--- NOTE | 2018-04-08 12:23 | PN ---
Psychiatric Progress Note Vital Signs: Vital Signs Period Temp Pulse Resp BP Sys/Meeks Pulse Ox Last 24 Hr 96.4 F-97.5 F 58-93 18-20 106-142/61-87 Date of Session: 04/08/18 Chief Complaint:: "My anxiety is getting worst and i have difficulty sleeping." HPI: Patient admitted to for cocaine and opiate dependence. ROS: Hepatitis C and GERD.Noted a distant history of tonsillectomy, osteomyelitis of right shoulder, left inguinal herniorraphy and torsion of testicles (in 20's). Current Medications: Active Medications Generic Name Dose Route Start Last Admin Trade Name Freq PRN Reason Stop Dose Admin Acetaminophen 650 mg 04/05/18 17:55 Tylenol - PO Q4H PRN FEVER Al Hydroxide/Mg Hydroxide 30 ml 04/05/18 17:55 Mylanta Oral Suspension - PO Q6H PRN DYSPEPSIA Bacitracin 0.9 gm 04/08/18 22:00 Bacitracin - TP BID LEWIS Citalopram Hydrobromide 10 mg 04/06/18 11:45 04/08/18 10:07 Celexa - PO 10 mg DAILY LEWIS Administration Colloidal Oatmeal 1 applic 04/08/18 11:37 Aveeno Soap - TP DAILY PRN HYGEINE Diazepam 10 mg 04/05/18 17:55 04/08/18 08:39 Valium - PO 04/08/18 17:54 10 mg Q4H PRN Administration WITHDRAWAL(CONT SUBST) Eucalyptus/Menthol/Phenol/Sorbitol 1 each 04/05/18 17:55 Cepastat Lozenge - MM Q4H PRN SORE THROAT Guaifenesin 10 ml 04/05/18 17:55 Robitussin Dm - PO Q6H PRN COUGH Hydroxyzine Pamoate 50 mg 04/05/18 17:55 04/07/18 10:19 Vistaril - PO 50 mg Q4H PRN Administration AGITATION Ibuprofen 400 mg 04/05/18 17:55 Motrin - PO Q6H PRN PAIN LEVEL 4-6 Loperamide HCl 4 mg 04/05/18 17:55 Imodium - PO Q6H PRN DIARRHEA Magnesium Citrate 300 ml 04/05/18 17:55 Citroma - PO Q48H PRN CONSTIPATION Magnesium Hydroxide 30 ml 04/05/18 17:55 Milk Of Magnesia - PO DAILY PRN CONSTIPATION Melatonin 5 mg 04/05/18 22:00 Melatonin PO HS PRN INSOMNIA Methadone HCl 5 mg 04/10/18 06:00 Dolophine - PO 04/10/18 06:01 ONCE@0600 ONE Methadone HCl 10 mg 04/09/18 10:00 Dolophine - PO 04/09/18 10:01 ONCE ONE Nicotine 14 mg 04/06/18 10:00 04/08/18 10:07 Nicoderm Patch - TD 14 mg DAILY LEWIS Administration Ondansetron HCl 8 mg 04/06/18 10:31 Zofran Odt - SL Q8H PRN NAUSEA AND/OR VOMITING Multivit/Folic Acid/Iron 1 tab 04/06/18 10:00 04/08/18 10:07 Vitamins (Sjr) - PO 1 tab DAILY LEWIS Administration Pseudoephedrine/Triprolidine 1 combo 04/05/18 17:55 Actifed - PO TID PRN NASAL CONGESTION Quetiapine Fumarate 200 mg 04/06/18 22:00 04/07/18 22:19 Seroquel - PO 200 mg HS LEWIS Administration Ranitidine HCl 150 mg 04/06/18 10:00 04/08/18 10:07 Zantac - PO 150 mg DAILY LEWIS Administration Thiamine HCl 100 mg 04/05/18 22:00 04/07/18 22:19 Vitamin B1 - PO 100 mg HS LEWIS Administration Medication(s) Change(s): Yes. Increase celexa to 20mg Current Side Effect: No Lab tests ordered: No Lab tests reviewed: Yes Provider note:: Chart reviewed. Dr. Viera note read and appreciated. Patient is currently prescribed celexa 10mg + Seroquel 200mg. Mr. Osei reports worsening anxiety. States he has taken celexa 20mg in the past with good effect. Patient's states his anxiety is unpredictable and was recently made aware of his family history of anxiety and depression. Pt. encouraged to accept vistaril 50mg as needed and to utilize his coping skills when his anxiety worsens throughout the day. Will increase celexa to 20mg. Patient also encouraged to accept melatonin 5mg for insomnia. Benefits and side effects discusssed. Total face to face time:: 25 Mental Status Exam - Mental Status Exam Alert and Oriented to: Time, Place, Person Cognitive Function: Good Patient Appearance: Well Groomed Mood: Hopeful, Euthymic Affect: Mood Congruent Patient Behavior: Appropriate, Cooperative Speech Pattern: Clear, Appropriate Voice Loudness: Normal Thought Process: Intact, Goal Oriented Thought Disorder: Not Present Hallucinations: Denies Suicidal Ideation: Denies Homicidal Ideation: Denies Insight/Judgement: Poor Sleep: Fair Appetite: Fair Muscle strength/Tone: Normal Gait/Station: Normal Psychiatric Treatment Plan - Problem List (1) Cocaine dependence Current Visit: Yes Qualifiers: Substance use status: uncomplicated Qualified Code(s): F14.20 - Cocaine dependence, uncomplicated (2) Insomnia Current Visit: Yes (3) Nicotine dependence Current Visit: Yes Qualifiers: Nicotine product type: cigarettes Substance use status: in withdrawal Qualified Code(s): F17.213 - Nicotine dependence, cigarettes, with withdrawal (4) Opioid dependence with withdrawal Current Visit: Yes (5) Substance induced mood disorder Current Visit: Yes
--- NOTE | 2018-04-08 14:48 | PN ---
BHS Progress Note (SOAP) Subjective: C/o feelings of anxiety, sweats and abd. cramps. Denies nausea or vomiting. C/o sore spot under (L) arm pit x 1 day. Objective: A&O x3. Mild tremors felt in hands. No increased perspiration. Abd S/NT/BS+. Papular/indurated lesion, approx 1 cm, w/increased erythema and tender to touch. 04/08/18 14:46 Vital Signs 04/08/18 04/08/18 09:15 13:53 Temperature 97.0 F L 97.9 F Pulse Rate 93 H 74 Respiratory 18 18 Rate Blood Pressure 122/74 124/73 Laboratory Last Values WBC 6.4 K/mm3 (4.0-10.0) 04/06/18 07:50 RBC 5.18 M/mm3 (4.00-5.60) 04/06/18 07:50 Hgb 14.8 GM/dL (11.7-16.9) 04/06/18 07:50 Hct 44.5 % (35.4-49) 04/06/18 07:50 MCV 86.0 fl (80-96) 04/06/18 07:50 MCH 28.6 pg (25.7-33.7) 04/06/18 07:50 MCHC 33.3 g/dl (32.0-35.9) 04/06/18 07:50 RDW 14.2 % (11.9-15.9) 04/06/18 07:50 Plt Count 200 K/MM3 (134-434) 04/06/18 07:50 MPV 8.3 fl (7.5-11.1) 04/06/18 07:50 Sodium 142 mmol/L (136-145) 04/06/18 07:50 Potassium 4.6 mmol/L (3.5-5.1) 04/06/18 07:50 Chloride 106 mmol/L (98-107) 04/06/18 07:50 Carbon Dioxide 28 mmol/L (21-32) 04/06/18 07:50 Anion Gap 8 MMOL/L (8-16) 04/06/18 07:50 BUN 15 mg/dL (7-18) 04/06/18 07:50 Creatinine 1.2 mg/dL (0.55-1.3) 04/06/18 07:50 Creat Clearance w eGFR > 60 (>60) 04/06/18 07:50 Random Glucose 91 mg/dL (74-106) 04/06/18 07:50 Calcium 9.4 mg/dL (8.5-10.1) 04/06/18 07:50 Total Bilirubin 0.5 mg/dL (0.2-1) 04/06/18 07:50 AST 22 U/L (15-37) 04/06/18 07:50 ALT 37 U/L (13-61) 04/06/18 07:50 Alkaline Phosphatase 77 U/L (45-117) 04/06/18 07:50 Total Protein 7.0 g/dl (6.4-8.2) 04/06/18 07:50 Albumin 3.5 g/dl (3.4-5.0) 04/06/18 07:50 Urine Color Yellow 04/06/18 09:00 Urine Appearance Turbid 04/06/18 09:00 Urine pH 5.0 (5.0-8.0) 04/06/18 09:00 Ur Specific [place] 1.018 (1.001-1.035) 04/06/18 09:00 Urine Protein Negative (NEGATIVE) 04/06/18 09:00 Urine Glucose (UA) Negative (NEGATIVE) 04/06/18 09:00 Urine Ketones Negative (NEGATIVE) 04/06/18 09:00 Urine Blood Negative (NEGATIVE) 04/06/18 09:00 Urine Nitrite Negative (NEGATIVE) 04/06/18 09:00 Urine Bilirubin Negative (<2.0 mg/dL) 04/06/18 09:00 Urine Urobilinogen Negative mg/dL (0.2-1.0) 04/06/18 09:00 Ur Leukocyte Esterase Negative (NEGATIVE) 04/06/18 09:00 RPR Titer Nonreactive (NONREACTIVE) 04/06/18 07:50 Labs reviewed. Assessment: Withdrawal symptoms. Papular lesion (L) axillae. Plan: Continue detox. Bacitracin and warm compresses BID.
[2018-04-08] MEDS: BACITRACIN 0.9 GM PACKET TP SCH (22:28)
[2018-04-08] MEDS: THIAMINE HCL 100 MG TABLET (FP) PO SCH (22:28)
[2018-04-08] MEDS: QUEtiapine FUMARATE 200 MG TABLET PO SCH (22:28)
[2018-04-09] MEDS: hydrOXYzine PAMOATE 50 MG CAPSULE (FP) PO PRN ×2 (09:32→14:40)
[2018-04-09] MEDS: BACITRACIN 0.9 GM PACKET TP SCH ×2 (09:34→22:03)
[2018-04-09] MEDS: RANITIDINE HCL 150 MG TABLET (FP) PO SCH (09:35)
[2018-04-09] MEDS: NICOTINE 14 MG/24 HOURS TOPICAL PATCH TD SCH (09:35)
[2018-04-09] MEDS: PRENATAL VITAMINS W/ FOLIC ACID TABLET (FP) PO SCH (09:36)
[2018-04-09] MEDS ORDERED: METHADONE HCL 10 MG TABLET (FOR DETOX USE ONLY) PO ONE (10:00)
[2018-04-09] MEDS ORDERED: CITALOPRAM HYDROBROMIDE 20 MG TABLET (FP) PO SCH (10:00)
--- NOTE | 2018-04-09 16:43 | PN ---
BHS Progress Note (SOAP) Subjective: feeling better no body aches no tremor less sweat Objective: 04/09/18 16:42 Vital Signs Temperature 97.5 F L 04/09/18 13:11 Pulse Rate 70 04/09/18 13:11 Respiratory Rate 18 04/09/18 13:11 Blood Pressure 105/70 04/09/18 13:11 O2 Sat by Pulse Oximetry (%) Laboratory Last Values WBC 6.4 K/mm3 (4.0-10.0) 04/06/18 07:50 RBC 5.18 M/mm3 (4.00-5.60) 04/06/18 07:50 Hgb 14.8 GM/dL (11.7-16.9) 04/06/18 07:50 Hct 44.5 % (35.4-49) 04/06/18 07:50 MCV 86.0 fl (80-96) 04/06/18 07:50 MCH 28.6 pg (25.7-33.7) 04/06/18 07:50 MCHC 33.3 g/dl (32.0-35.9) 04/06/18 07:50 RDW 14.2 % (11.9-15.9) 04/06/18 07:50 Plt Count 200 K/MM3 (134-434) 04/06/18 07:50 MPV 8.3 fl (7.5-11.1) 04/06/18 07:50 Sodium 142 mmol/L (136-145) 04/06/18 07:50 Potassium 4.6 mmol/L (3.5-5.1) 04/06/18 07:50 Chloride 106 mmol/L (98-107) 04/06/18 07:50 Carbon Dioxide 28 mmol/L (21-32) 04/06/18 07:50 Anion Gap 8 MMOL/L (8-16) 04/06/18 07:50 BUN 15 mg/dL (7-18) 04/06/18 07:50 Creatinine 1.2 mg/dL (0.55-1.3) 04/06/18 07:50 Creat Clearance w eGFR > 60 (>60) 04/06/18 07:50 Random Glucose 91 mg/dL (74-106) 04/06/18 07:50 Calcium 9.4 mg/dL (8.5-10.1) 04/06/18 07:50 Total Bilirubin 0.5 mg/dL (0.2-1) 04/06/18 07:50 AST 22 U/L (15-37) 04/06/18 07:50 ALT 37 U/L (13-61) 04/06/18 07:50 Alkaline Phosphatase 77 U/L (45-117) 04/06/18 07:50 Total Protein 7.0 g/dl (6.4-8.2) 04/06/18 07:50 Albumin 3.5 g/dl (3.4-5.0) 04/06/18 07:50 Urine Color Yellow 04/06/18 09:00 Urine Appearance Turbid 04/06/18 09:00 Urine pH 5.0 (5.0-8.0) 04/06/18 09:00 Ur Specific [place] 1.018 (1.001-1.035) 04/06/18 09:00 Urine Protein Negative (NEGATIVE) 04/06/18 09:00 Urine Glucose (UA) Negative (NEGATIVE) 04/06/18 09:00 Urine Ketones Negative (NEGATIVE) 04/06/18 09:00 Urine Blood Negative (NEGATIVE) 04/06/18 09:00 Urine Nitrite Negative (NEGATIVE) 04/06/18 09:00 Urine Bilirubin Negative (<2.0 mg/dL) 04/06/18 09:00 Urine Urobilinogen Negative mg/dL (0.2-1.0) 04/06/18 09:00 Ur Leukocyte Esterase Negative (NEGATIVE) 04/06/18 09:00 RPR Titer Nonreactive (NONREACTIVE) 04/06/18 07:50 lab noted Assessment: 04/09/18 16:43 withdrawal sx Plan: continue detox
[2018-04-09] MEDS: THIAMINE HCL 100 MG TABLET (FP) PO SCH (22:03)
[2018-04-09] MEDS: QUEtiapine FUMARATE 200 MG TABLET PO SCH (22:03)
[2018-04-10] MEDS ORDERED: METHADONE HCL 5 MG TABLET (FOR DETOX USE ONLY) PO ONE (06:00)
[2018-04-10 08:11] VITALS: BP 129/80; PULSE 63; TEMP 97.2
--- NOTE | 2018-04-10 10:52 | DS ---
[facility] Detox Discharge Summary Admission Date: 04/05/18 Discharge Date: 04/10/18 - History Present History: Opioid Dependence Additional Comments: 53 years old male admitted 04/05/18 for opiate withdrawal sx completed detox regimen tolerated well alert oriented x 3 no acute distress aftercare as per arranged by the counselor patient lest the unit around 0720 bond underwriter does not assess nor evaluate the patient - Physical Exam Results Vital Signs: Vital Signs Temperature 97.2 F L 04/10/18 08:10 Pulse Rate 63 04/10/18 08:10 Respiratory Rate 18 04/10/18 08:10 Blood Pressure 129/80 04/10/18 08:10 O2 Sat by Pulse Oximetry (%) Pertinent Admission Physical Exam Findings: opiate withdrawal sx Vital Signs Temperature 97.2 F L 04/10/18 08:10 Pulse Rate 63 04/10/18 08:10 Respiratory Rate 18 04/10/18 08:10 Blood Pressure 129/80 04/10/18 08:10 O2 Sat by Pulse Oximetry (%) Laboratory Last Values WBC 6.4 K/mm3 (4.0-10.0) 04/06/18 07:50 RBC 5.18 M/mm3 (4.00-5.60) 04/06/18 07:50 Hgb 14.8 GM/dL (11.7-16.9) 04/06/18 07:50 Hct 44.5 % (35.4-49) 04/06/18 07:50 MCV 86.0 fl (80-96) 04/06/18 07:50 MCH 28.6 pg (25.7-33.7) 04/06/18 07:50 MCHC 33.3 g/dl (32.0-35.9) 04/06/18 07:50 RDW 14.2 % (11.9-15.9) 04/06/18 07:50 Plt Count 200 K/MM3 (134-434) 04/06/18 07:50 MPV 8.3 fl (7.5-11.1) 04/06/18 07:50 Sodium 142 mmol/L (136-145) 04/06/18 07:50 Potassium 4.6 mmol/L (3.5-5.1) 04/06/18 07:50 Chloride 106 mmol/L (98-107) 04/06/18 07:50 Carbon Dioxide 28 mmol/L (21-32) 04/06/18 07:50 Anion Gap 8 MMOL/L (8-16) 04/06/18 07:50 BUN 15 mg/dL (7-18) 04/06/18 07:50 Creatinine 1.2 mg/dL (0.55-1.3) 04/06/18 07:50 Creat Clearance w eGFR > 60 (>60) 04/06/18 07:50 Random Glucose 91 mg/dL (74-106) 04/06/18 07:50 Calcium 9.4 mg/dL (8.5-10.1) 04/06/18 07:50 Total Bilirubin 0.5 mg/dL (0.2-1) 04/06/18 07:50 AST 22 U/L (15-37) 04/06/18 07:50 ALT 37 U/L (13-61) 04/06/18 07:50 Alkaline Phosphatase 77 U/L (45-117) 04/06/18 07:50 Total Protein 7.0 g/dl (6.4-8.2) 04/06/18 07:50 Albumin 3.5 g/dl (3.4-5.0) 04/06/18 07:50 Urine Color Yellow 04/06/18 09:00 Urine Appearance Turbid 04/06/18 09:00 Urine pH 5.0 (5.0-8.0) 04/06/18 09:00 Ur Specific [place] 1.018 (1.001-1.035) 04/06/18 09:00 Urine Protein Negative (NEGATIVE) 04/06/18 09:00 Urine Glucose (UA) Negative (NEGATIVE) 04/06/18 09:00 Urine Ketones Negative (NEGATIVE) 04/06/18 09:00 Urine Blood Negative (NEGATIVE) 04/06/18 09:00 Urine Nitrite Negative (NEGATIVE) 04/06/18 09:00 Urine Bilirubin Negative (<2.0 mg/dL) 04/06/18 09:00 Urine Urobilinogen Negative mg/dL (0.2-1.0) 04/06/18 09:00 Ur Leukocyte Esterase Negative (NEGATIVE) 04/06/18 09:00 RPR Titer Nonreactive (NONREACTIVE) 04/06/18 07:50 lab noted - Treatment Hospital Course: Detox Protocol Followed, Detoxed Safely, Responded well, Discharged Condition Good, Rehab Referral Accepted Patient has Accepted a Rehab Referral to: as per counselor arranged - Medication Discharge Medications: Ambulatory Orders Citalopram Hydrobromide [Celexa -] 10 mg PO DAILY #30 tablet 01/31/18 Quetiapine Fumarate [Seroquel -] 200 mg PO HS #30 tablet 01/31/18 Citalopram Hydrobromide [Celexa -] 20 mg PO DAILY #30 tablet 04/09/18 Gabapentin 800 mg PO TID #90 tablet 04/09/18 Quetiapine Fumarate [Seroquel -] 200 mg PO HS #30 tablet 04/09/18 Ranitidine [Zantac -] 150 mg PO DAILY #60 tablet 04/09/18 - Diagnosis (1) Opioid dependence with withdrawal Status: Acute (2) Bipolar affective, depress, mod Status: Suspected (3) Hepatitis C Status: Resolved Qualifiers: Viral hepatitis chronicity: chronic Hepatic coma status: without hepatic coma Qualified Code(s): B18.2 - Chronic viral hepatitis C - AMA Did Patient Leave Against Medical Advice: No
== END 2018-04-10 07:20 | disposition home or self-care (01) | DRG 773 ==
LOC: YASAS 11:01 → Y3N 17:06 → Y6N 04-06 20:15
PROC: HZ2ZZZZ Detoxification Services for Substance Abuse Treatment (ICD-10-PCS; principal; 2018-04-05)
DX: F11.23 Opioid dependence with withdrawal (principal); F14.20 Cocaine dependence, uncomplicated; F17.213 Nicotine dependence, cigarettes, with withdrawal; F19.24 Other psychoactive substance dependence with psychoactive substance-induced mood disorder; F33.9 Major depressive disorder, recurrent, unspecified; F31.32 Bipolar disorder, current episode depressed, moderate; F41.9 Anxiety disorder, unspecified; B18.2 Chronic viral hepatitis C; K21.9 Gastro-esophageal reflux disease without esophagitis; M54.5 Low back pain; G89.29 Other chronic pain; Z88.0 Allergy status to penicillin
CPT/HCPCS: 36415; 80053; 81003; 85027; 86593; 93005; 93010

== ENCOUNTER 2021-01-14 10:18 | Inpatient (IN) | payer SELFPAY ==
[2021-01-14 10:51] VITALS: BMI 31.5
[2021-01-14] MEDS ORDERED: ONDANSETRON *ODT* 4 MG TABLET SL PRN (13:11)
[2021-01-14] MEDS ORDERED: IBUPROFEN 400 MG TABLET (FP) PO PRN (13:11)
[2021-01-14] MEDS ORDERED: MAG HYDROX/AL HYDROX/SIMETH 30 ML UNIT-DOSE CUP PO PRN (13:11)
[2021-01-14] MEDS ORDERED: MAGNESIUM CITRATE 300 ML BOTTLE PO PRN (13:11)
[2021-01-14] MEDS ORDERED: NICOTINE POLACRILEX 2 MG GUM BUC PRN (13:11)
[2021-01-14] MEDS ORDERED: MAGNESIUM HYDROX 2400MG/30ML ORAL SUSPENSION 30 ML CUP PO PRN (13:11)
[2021-01-14] MEDS ORDERED: BISMUTH SUBSALICYLATE 524 MG/30 ML PO PRN (13:11)
[2021-01-14] MEDS ORDERED: ACETAMINOPHEN 325 MG TABLET (FP) PO PRN ×2 (13:11)
[2021-01-14] MEDS ORDERED: MENTHOL/PHENOL 1 EACH UD MM PRN (13:11)
[2021-01-14] MEDS ORDERED: METHOCARBAMOL 500 MG TABLET PO PRN (13:11)
[2021-01-14] MEDS ORDERED: cloNIDine HCL 0.1 MG TABLET PO PRN (13:11)
[2021-01-14] MEDS ORDERED: METHADONE HCL 10 MG TABLET (FOR DETOX USE ONLY) PO ONE (13:45)
[2021-01-14] MEDS: hydrOXYzine PAMOATE 25 MG CAPSULE (FP) PO SCH ×3 (15:28→22:43)
[2021-01-14] MEDS: NICOTINE 14 MG/24 HOURS TOPICAL PATCH TD SCH (15:29)
[2021-01-14] MEDS: MELATONIN 5 MG TABLETS PO SCH (22:42)
[2021-01-14] MEDS: THIAMINE HCL 100 MG TABLET (FP) PO SCH (22:43)
[2021-01-15] MEDS: hydrOXYzine PAMOATE 25 MG CAPSULE (FP) PO SCH ×5 (07:14→23:17)
[2021-01-15] MEDS ORDERED: METHADONE HCL 10 MG TABLET (FOR DETOX USE ONLY) ONE (09:03)
[2021-01-15] MEDS ORDERED: METHADONE HCL 5 MG TABLET (FOR DETOX USE ONLY) ONE (09:03)
[2021-01-15 10:00] LABS: HEMATOCRIT 45.3 % (35.4-49); MCHC 33.1 g/dl (32.0-35.9); MEAN CELL VOLUME 87.6 fl (80-96); MEAN PLT VOLUME 8.7 fl (7.5-11.1); PLATELET COUNT 216 10^3/uL (134-434); RBC 5.17 M/mm3 (4.00-5.60); WHITE BLOOD COUNT 6.8 K/mm3 (4.0-10.0)
[2021-01-15] MEDS ORDERED: METHADONE (DETOX) 20 MG, METHADONE (DETOX) 5 MG PO ONE (10:00)
[2021-01-15] MEDS ORDERED: PRENATAL VITAMINS W/ FOLIC ACID TABLET (FP) PO SCH (10:00)
[2021-01-15 10:10] LABS: ALBUMIN 3.3 g/dl (3.4-5.0); CALCIUM 8.6 mg/dL (8.5-10.1)
[2021-01-15 10:11] LABS: BLOOD UREA NITROGEN 16.4 mg/dL (7-18)
[2021-01-15 10:14] LABS: CREATININE 1.2 mg/dL (0.55-1.3)
[2021-01-15 10:15] LABS: BILIRUBIN,TOTAL 0.4 mg/dL (0.2-1); TOT PROT 6.4 g/dl (6.4-8.2)
[2021-01-15] MEDS: NICOTINE 14 MG/24 HOURS TOPICAL PATCH TD SCH (10:39)
[2021-01-15] MEDS: MELATONIN 5 MG TABLETS PO SCH (23:17)
[2021-01-15] MEDS: THIAMINE HCL 100 MG TABLET (FP) PO SCH (23:17)
[2021-01-16 07:22] VITALS: PULSE 55
[2021-01-16] MEDS: hydrOXYzine PAMOATE 25 MG CAPSULE (FP) PO SCH (08:04)
[2021-01-16 09:12] VITALS: BP 129/79; TEMP 97.7
[2021-01-16] MEDS ORDERED: METHADONE HCL 10 MG TABLET (FOR DETOX USE ONLY) PO ONE (10:00)
[2021-01-17] MEDS ORDERED: METHADONE (DETOX) 10 MG, METHADONE (DETOX) 5 MG PO ONE (10:00)
[2021-01-18] MEDS ORDERED: METHADONE HCL 10 MG TABLET (FOR DETOX USE ONLY) PO ONE (10:00)
[2021-01-19] MEDS ORDERED: METHADONE HCL 5 MG TABLET (FOR DETOX USE ONLY) PO ONE (06:00)
== END 2021-01-16 10:01 | disposition home or self-care (01) | DRG 773 ==
LOC: YASAS 10:18 → Y3N 13:23
PROVIDERS: ADMIT Allergy & Immunology; ATTEND Allergy & Immunology
PROC: HZ2ZZZZ Detoxification Services for Substance Abuse Treatment (ICD-10-PCS; principal; 2021-01-14)
DX: F11.23 Opioid dependence with withdrawal (principal); F14.20 Cocaine dependence, uncomplicated; F17.213 Nicotine dependence, cigarettes, with withdrawal; K21.9 Gastro-esophageal reflux disease without esophagitis; B18.2 Chronic viral hepatitis C; Z88.0 Allergy status to penicillin
CPT/HCPCS: 36415; 80053; 85027; 86780; C9803; J0735; U0003; U0005

== ENCOUNTER 2021-05-20 09:26 | Inpatient (IN) | payer OTHER ==
[2021-05-20 09:52] VITALS: BMI 28.2
[2021-05-20] MEDS ORDERED: MAG HYDROX/AL HYDROX/SIMETH 30 ML UNIT-DOSE CUP PO PRN (09:53)
[2021-05-20] MEDS ORDERED: ACETAMINOPHEN 325 MG TABLET (FP) PO PRN ×2 (09:53)
[2021-05-20] MEDS ORDERED: methaDONE HCL 10 MG TABLET (FOR DETOX USE ONLY) PO ONE (09:53)
[2021-05-20] MEDS ORDERED: IBUPROFEN 400 MG TABLET (FP) PO PRN (09:53)
[2021-05-20] MEDS ORDERED: NICOTINE 10 MG CARTRIDGE (INHALER) IH PRN (09:53)
[2021-05-20] MEDS ORDERED: MAGNESIUM CITRATE 300 ML BOTTLE PO PRN (09:53)
[2021-05-20] MEDS ORDERED: ONDANSETRON *ODT* 4 MG TABLET SL PRN (09:53)
[2021-05-20] MEDS ORDERED: BISMUTH SUBSALICYLATE 262 MG/15 ML BTL PO PRN (09:53)
[2021-05-20] MEDS ORDERED: MENTHOL/PHENOL 1 EACH UD MM PRN (09:53)
[2021-05-20] MEDS ORDERED: MAGNESIUM HYDROX 2400MG/30ML ORAL SUSPENSION 30 ML CUP PO PRN (09:53)
[2021-05-20] MEDS: PRENATAL VITAMINS W/ FOLIC ACID TABLET (FP) PO SCH (11:56)
[2021-05-20] MEDS: hydrOXYzine PAMOATE 25 MG CAPSULE (FP) PO SCH ×4 (11:56→22:28)
[2021-05-20 14:59] LABS: HEMATOCRIT 41.4 % (35.4-49); HEMOGLOBIN 13.8 GM/dL (11.7-16.9); MCH 28.8 pg (25.7-33.7); MCHC 33.4 g/dl (32.0-35.9); MEAN CELL VOLUME 86.3 fl (80-96); MEAN PLT VOLUME 8.2 fl (7.5-11.1); PLATELET COUNT 288 10^3/uL (134-434); RDW 14.6 % (11.9-15.9); WHITE BLOOD COUNT 7.2 K/mm3 (4.0-10.0)
[2021-05-20 15:07] LABS: CALCIUM 9.2 mg/dL (8.5-10.1)
[2021-05-20 15:08] LABS: ALBUMIN 3.3 g/dl (3.4-5.0); BLOOD UREA NITROGEN 14.5 mg/dL (7-18)
[2021-05-20 15:11] LABS: CREATININE 1.3 mg/dL (0.55-1.3)
[2021-05-20 15:12] LABS: BILIRUBIN,TOTAL 0.6 mg/dL (0.2-1); TOT PROT 7.2 g/dl (6.4-8.2)
[2021-05-20] MEDS: THIAMINE HCL 100 MG TABLET (FP) PO SCH (22:26)
[2021-05-20] MEDS: MELATONIN 5 MG TABLETS PO SCH (22:26)
[2021-05-20] MEDS: QUEtiapine FUMARATE 100 MG TABLET (FP) PO SCH (22:26)
[2021-05-20] MEDS: cloNIDine HCL 0.1 MG TABLET PO PRN (22:27)
[2021-05-21] MEDS: hydrOXYzine PAMOATE 25 MG CAPSULE (FP) PO SCH ×5 (05:47→22:23)
[2021-05-21] MEDS: cloNIDine HCL 0.1 MG TABLET PO PRN ×2 (05:50→22:23)
[2021-05-21] MEDS ORDERED: methaDONE HCL 10 MG TABLET (FOR DETOX USE ONLY) ONE (09:43)
[2021-05-21] MEDS: PARoxetine HCL 10 MG TABLET PO SCH (10:50)
[2021-05-21] MEDS: METHOCARBAMOL 500 MG TABLET PO PRN (10:50)
[2021-05-21] MEDS: PRENATAL VITAMINS W/ FOLIC ACID TABLET (FP) PO SCH (10:50)
[2021-05-21] MEDS: QUEtiapine FUMARATE 100 MG TABLET (FP) PO SCH (22:21)
[2021-05-21] MEDS: THIAMINE HCL 100 MG TABLET (FP) PO SCH (22:21)
[2021-05-21] MEDS: MELATONIN 5 MG TABLETS PO SCH (22:21)
[2021-05-22] MEDS: hydrOXYzine PAMOATE 25 MG CAPSULE (FP) PO SCH ×2 (05:48→10:14)
[2021-05-22] MEDS: cloNIDine HCL 0.1 MG TABLET PO PRN (05:50)
[2021-05-22 09:18] VITALS: BP 109/79; PULSE 83; TEMP 97.9
[2021-05-22] MEDS ORDERED: methaDONE HCL 10 MG TABLET (FOR DETOX USE ONLY) PO ONE (10:00)
[2021-05-22] MEDS: PRENATAL VITAMINS W/ FOLIC ACID TABLET (FP) PO SCH (10:13)
[2021-05-22] MEDS: PARoxetine HCL 10 MG TABLET PO SCH (10:14)
[2021-05-22] MEDS: METHOCARBAMOL 500 MG TABLET PO PRN (10:14)
[2021-05-24] MEDS ORDERED: methaDONE HCL 10 MG TABLET (FOR DETOX USE ONLY) PO ONE (10:00)
== END 2021-05-22 11:23 | disposition left against medical advice (07) | DRG 770 ==
LOC: YASAS 09:26 → Y6N 10:33
PROVIDERS: ADMIT Allergy & Immunology; ATTEND Allergy & Immunology
PROC: HZ2ZZZZ Detoxification Services for Substance Abuse Treatment (ICD-10-PCS; principal; 2021-05-20)
DX: F11.23 Opioid dependence with withdrawal (principal); F14.20 Cocaine dependence, uncomplicated; F17.210 Nicotine dependence, cigarettes, uncomplicated; F19.282 Other psychoactive substance dependence with psychoactive substance-induced sleep disorder; F19.24 Other psychoactive substance dependence with psychoactive substance-induced mood disorder; F41.8 Other specified anxiety disorders; K21.9 Gastro-esophageal reflux disease without esophagitis; Z86.19 Personal history of other infectious and parasitic diseases; Z88.0 Allergy status to penicillin
CPT/HCPCS: 36415; 80053; 85027; 86780; C9803; J0735; U0003; U0005

== ENCOUNTER 2022-05-29 10:36 | Inpatient (IN) | payer OTHER ==
[2022-05-29 11:05] VITALS: BMI 30.9
[2022-05-29] MEDS ORDERED: BISMUTH SUBSALICYLATE 262 MG/15 ML BTL PO PRN (11:24)
[2022-05-29] MEDS ORDERED: NALOXONE HCL (KLOXXADO) 8 MG SPRAY NS PRN (11:24)
[2022-05-29] MEDS ORDERED: ONDANSETRON *ODT* 4 MG TABLET SL PRN (11:24)
[2022-05-29] MEDS ORDERED: MAGNESIUM HYDROX 2400MG/30ML ORAL SUSPENSION 30 ML CUP PO PRN (11:24)
[2022-05-29] MEDS ORDERED: MAG HYDROX/AL HYDROX/SIMETH 30 ML UNIT-DOSE CUP PO PRN (11:24)
[2022-05-29] MEDS ORDERED: methaDONE HCL 10 MG TABLET (FOR DETOX USE ONLY) PO ONE (11:24)
[2022-05-29] MEDS ORDERED: NICOTINE 14 MG/24 HOURS TOPICAL PATCH TD PRN (11:24)
[2022-05-29] MEDS ORDERED: ACETAMINOPHEN 325 MG TABLET (FP) PO PRN ×2 (11:24)
[2022-05-29] MEDS ORDERED: LOPERAMIDE HCL 2 MG CAPSULE PO PRN (11:24)
[2022-05-29] MEDS ORDERED: NICOTINE POLACRILEX 2 MG GUM BUC PRN (11:24)
[2022-05-29] MEDS ORDERED: DICYCLOMINE HCL 10 MG CAPSULE PO PRN (11:24)
[2022-05-29] MEDS ORDERED: BENZOCAINE/MENTHOL (CHLORASEPTIC ) LOZENGE MM PRN (11:24)
[2022-05-29] MEDS ORDERED: IBUPROFEN 400 MG TABLET (FP) PO PRN (11:24)
[2022-05-29] MEDS: hydrOXYzine PAMOATE 25 MG CAPSULE (FP) PO PRN ×2 (13:39→20:22)
[2022-05-29 15:08] LABS: HEMATOCRIT 47.6 % (35.4-49); HEMOGLOBIN 16.2 GM/dL (11.7-16.9); MCH 29.5 pg (25.7-33.7); MCHC 33.9 g/dl (32.0-35.9); MEAN CELL VOLUME 86.8 fl (80-96); PLATELET COUNT 281 10^3/uL (134-434); RBC 5.48 M/mm3 (4.00-5.60); RDW 14.1 % (11.9-15.9); WHITE BLOOD COUNT 7.3 K/mm3 (4.0-10.0)
[2022-05-29 15:17] LABS: ALBUMIN 4.1 g/dl (3.4-5.0); CALCIUM 9.5 mg/dL (8.5-10.1)
[2022-05-29 15:18] LABS: BLOOD UREA NITROGEN 21.1 mg/dL (7-18)
[2022-05-29 15:21] LABS: CREATININE 1.4 mg/dL (0.55-1.3)
[2022-05-29 15:22] LABS: BILIRUBIN,TOTAL 0.7 mg/dL (0.2-1); TOT PROT 7.8 g/dl (6.4-8.2)
[2022-05-29] MEDS: NICOTINE 10 MG CARTRIDGE (INHALER) IH PRN (20:22)
[2022-05-29] MEDS: MELATONIN 5 MG TABLETS PO SCH (22:12)
[2022-05-29] MEDS: traZODone HCL 100 MG TABLET (FP) PO SCH (22:13)
[2022-05-29] MEDS: THIAMINE HCL 100 MG TABLET (FP) PO SCH (22:13)
[2022-05-29] MEDS: METHOCARBAMOL 500 MG TABLET PO PRN (22:13)
[2022-05-30] MEDS: hydrOXYzine PAMOATE 25 MG CAPSULE (FP) PO PRN ×2 (06:04→17:32)
[2022-05-30] MEDS: METHOCARBAMOL 500 MG TABLET PO PRN ×2 (06:04→17:32)
[2022-05-30] MEDS: cloNIDine HCL 0.1 MG TABLET PO PRN ×2 (08:36→17:32)
[2022-05-30] MEDS: IBUPROFEN 600 MG TABLET (FP) PO PRN ×2 (08:36→17:32)
[2022-05-30] MEDS: PRENATAL VITAMINS W/ FOLIC ACID TABLET (FP) PO SCH (10:12)
[2022-05-30] MEDS: CITALOPRAM HYDROBROMIDE 10 MG TABLET PO SCH (10:12)
[2022-05-30] MEDS: THIAMINE HCL 100 MG TABLET (FP) PO SCH (22:17)
[2022-05-30] MEDS: MELATONIN 5 MG TABLETS PO SCH (22:17)
[2022-05-30] MEDS: traZODone HCL 100 MG TABLET (FP) PO SCH (22:17)
[2022-05-31] MEDS: hydrOXYzine PAMOATE 25 MG CAPSULE (FP) PO PRN ×2 (02:14→15:43)
[2022-05-31] MEDS: cloNIDine HCL 0.1 MG TABLET PO PRN ×2 (02:14→09:30)
[2022-05-31] MEDS: METHOCARBAMOL 500 MG TABLET PO PRN ×3 (02:14→22:19)
[2022-05-31] MEDS: PRENATAL VITAMINS W/ FOLIC ACID TABLET (FP) PO SCH (09:26)
[2022-05-31] MEDS: CITALOPRAM HYDROBROMIDE 10 MG TABLET PO SCH (09:26)
[2022-05-31] MEDS ORDERED: methaDONE HCL 10 MG TABLET (FOR DETOX USE ONLY) PO ONE (10:00)
[2022-05-31] MEDS: GABAPENTIN 400 MG CAPSULE PO SCH (11:33)
[2022-05-31] MEDS: IBUPROFEN 600 MG TABLET (FP) PO PRN (15:43)
[2022-05-31] MEDS: traZODone HCL 100 MG TABLET (FP) PO SCH (22:19)
[2022-05-31] MEDS: MELATONIN 5 MG TABLETS PO SCH (22:19)
[2022-05-31] MEDS: THIAMINE HCL 100 MG TABLET (FP) PO SCH (22:20)
[2022-06-01] MEDS: hydrOXYzine PAMOATE 25 MG CAPSULE (FP) PO PRN (05:42)
[2022-06-01] MEDS: METHOCARBAMOL 500 MG TABLET PO PRN (05:42)
[2022-06-01 09:02] VITALS: BP 138/73; PULSE 52; RESP 16; TEMP 98.7
[2022-06-01] MEDS: NICOTINE 10 MG CARTRIDGE (INHALER) IH PRN (09:46)
[2022-06-01] MEDS: CITALOPRAM HYDROBROMIDE 10 MG TABLET PO SCH (10:29)
[2022-06-01] MEDS: PRENATAL VITAMINS W/ FOLIC ACID TABLET (FP) PO SCH (10:29)
[2022-06-01] MEDS: GABAPENTIN 400 MG CAPSULE PO SCH (10:30)
[2022-06-02] MEDS ORDERED: methaDONE HCL 10 MG TABLET (FOR DETOX USE ONLY) PO ONE (10:00)
== END 2022-06-01 10:56 | disposition left against medical advice (07) | DRG 770 ==
LOC: YASAS 10:36 → Y3N 12:41
PROVIDERS: ADMIT Allergy & Immunology; ATTEND Psychiatry & Neurology Psychiatry
PROC: HZ2ZZZZ Detoxification Services for Substance Abuse Treatment (ICD-10-PCS; principal; 2022-05-29)
DX: F11.23 Opioid dependence with withdrawal (principal); F14.20 Cocaine dependence, uncomplicated; F12.20 Cannabis dependence, uncomplicated; F17.210 Nicotine dependence, cigarettes, uncomplicated; F32.A Depression, unspecified; F41.8 Other specified anxiety disorders; K21.9 Gastro-esophageal reflux disease without esophagitis; Z86.19 Personal history of other infectious and parasitic diseases; Z88.0 Allergy status to penicillin
CPT/HCPCS: 36415; 80053; 85027; 86780; C9803-CS; U0003; U0005